=== PATIENT | female | born 1960 | race Caucasian/White ===

== ENCOUNTER 2020-01-08 23:32 | Inpatient (IN) | payer MEDICARE, OTHER, SELFPAY ==
--- NOTE | 2020-01-08 23:28 | PCM.HP.STD ---
Problem List (1) Sepsis Status: Acute Qualifiers: Sepsis type: sepsis due to unspecified organism Sepsis acute organ dysfunction status: unspecified Qualified Code(s): A41.9 - Sepsis, unspecified organism (2) Colitis Status: Acute (3) Acute kidney injury Status: Acute (4) CAD (coronary artery disease) Status: Chronic Qualifiers: Coronary Disease-Associated Artery/Lesion type: unspecified vessel or lesion type [place] vs. transplanted heart: unspecified whether [place] or transplanted heart Associated angina: angina presence unspecified Qualified Code(s): I25.10 - Atherosclerotic heart disease of [place] coronary artery without angina pectoris (5) Takotsubo cardiomyopathy Status: Chronic (6) HTN (hypertension) Status: Chronic Qualifiers: Hypertension type: essential hypertension Qualified Code(s): I10 - Essential (primary) hypertension (7) HLD (hyperlipidemia) Status: Chronic Qualifiers: Hyperlipidemia type: unspecified Qualified Code(s): E78.5 - Hyperlipidemia, unspecified (8) Diabetes mellitus, type II Status: Chronic Qualifiers: Diabetes mellitus salvage determiner insulin use: without residential use Diabetes mellitus complication status: with other specified complication Qualified Code(s): E11.69 - Type 2 diabetes mellitus with other specified complication (9) GERD (gastroesophageal reflux disease) Status: Chronic Qualifiers: Esophagitis presence: esophagitis presence not specified Qualified Code(s): K21.9 - Gastro-esophageal reflux disease without esophagitis (10) History of GI bleed Status: Chronic (11) History of small bowel obstruction Status: Chronic (12) Former tobacco use Status: Chronic History of Present Illness Date of Admission: 01/08/20 Chief Complaint: Abdominal, nausea, emesis, bloody diarrhea The patient is a 59 y/o F w/ PMHx: Non-obstructive CAD, Takotsubo cardiomyopathy, Depression and Anxiety, Diabetes mellitus type II, Hx GI Bleed, Hx SBO, HLD, HTN, Hx diverticulosis, GERD, Former tobacco use who presents to the [facility] on 01/08/20 as direction admission from outside ED with history of presenting to their facility also on 01/08/20 with history of recent constipation 2 days prior to recent symptom onset which he notes has been an issue since initiation of Trulicity with onset day prior initially loose stools noting that she had a normal solid bowel movement initially followed by brownish diarrhea however since then she has had occasional reddish-brown stools with mucus and blood-tinged in addition to onset evening prior to outside hospital ED presentation left sided, lower > upper, abdominal pain, constant, sharp, 5-7/10 in severity with onset concurrently nausea and intractable emesis with fever onset up to 102. She denies any recent new cough from baseline although does have allergies and post-nasal drip. She denies any dyspnea. Upon OSH ED evaluation she noted pain initially 5/10 in severity and upon discussion with ED physician rated her pain improved to 1/10. Addition outside ED evaluation and work-up included: VS: T 97.7, HR 105, RR 17, BP 121/55, 100% on RA CBC w/ WBC 25, Hgb 14, Plts 372 with L shift CMP w/ Na 131, Chl 92, BUN/Cr 47/3.45 (2018 baselinene Cr 1.1), glucose 231, unremarkable hepatic profile, lipase 89 LA 1.6 Bld Cx x 2 pending per ED UA 6-12 WBC, trace LE, nitrite negative, few bacteria with UCx pending Bloody mucousy stools, occult positive CT A/P without contrast colonic wall thickening with distal transverse and descending colon involvement concerning for colitis, possble sluge or gallstones in the gallbladder, unremarkable pancreas, no evidence kidney stones, normal appendix, no ascites or aneursym, normal appearing lung bases BL. Medications administered: Morphine, zofran, cipro, flagyl, 2L NS. [place] placed. Past Medical History Past Medical History (Chronic Problems): Chronic Problems CAD (coronary artery disease) (Chronic) Takotsubo cardiomyopathy (Chronic) HTN (hypertension) (Chronic) HLD (hyperlipidemia) (Chronic) Diabetes mellitus, type II (Chronic) GERD (gastroesophageal reflux disease) (Chronic) History of GI bleed (Chronic) History of small bowel obstruction (Chronic) Former tobacco use (Chronic) Augmentin (diarrhea), Benadrul (dystonia), Codeine (GI upset, itching), Compazine (lip smaking), doxycycline (diarrhea), levaquin (increased BS), morphine (upset stomach), phenergan (lip smaking), vicodin (hand and face swelling). Home Medications: Ambulatory Orders Medication Instructions Recorded Cyclobenzaprine HCl 10 mg PO PRN PRN 01/08/20 Dulaglutide [Trulicity] 0.75 mg SQ QWEEK 01/08/20 Duloxetine Hcl [Cymbalta] 30 mg PO DAILY 01/08/20 Lisinopril 20 mg PO DAILY 01/08/20 Metformin HCl ER 2,000 mg PO DAILY 01/08/20 Metoprolol Succinate 25 mg PO DAILY 01/08/20 Pantoprazole Sodium 40 mg PO DAILY 01/08/20 Sitagliptin Phosphate [Januvia] 100 mg PO DAILY 01/08/20 Terbinafine HCl 250 mg PO DAILY 01/08/20 Surgical History: - - Hx small bowel resection for recurrent SBO 2013, T+A, lumbar laminectomy, radical hysterectomy secondary to history of cervical cancer. Psychiatric History: Anxiety, Depression [employer] History: cervical cancer - History of cervical cancer status post radical hysterectomy. Lives: Spouse/ Significant Other Smoking Status: Former smoker - Patient quit cigarette tobacco usage approximately 35 years prior with prior to this less than 1 pack/day noted to be intermittent from age 10 until she quit. Tobacco Use: Non-smoker Alcohol: None Drugs: None - *Family History Maternal History Items: Cancer, Diabetes Paternal History Items: Cancer, Diabetes, Hypertension Review of Systems Constitutional: Reports: Anorexia, Chills, Fever, Malaise, Weakness, Fatigue. Denies: Weight Change HEENT: Reports: Post Nasal Drip, Sinus Congestion. Denies: Head Aches, Sinus Drainage Cardiovascular: Denies: Chest Pain, Chest Pressure, Chest Tightness, Light Headedness, Orthopnea, Palpitations, Syncope Respiratory: Reports: Cough - Chronic cough with sinuses, unchanged.. Denies: Shortness of Breath, Shortness of breath at rest, Shortness of breath upon exertion, Sputum production Gastrointestinal: Reports: Abdominal Pain, Constipation, Diarrhea, Nausea, Vomiting, - - Blood-tinged mucus with diarrhea. Genitourinary: Denies: Dysuria Musculoskeletal: Denies: Joint Pain, Joint Tenderness Skin: Denies: Rash, Wounds Neurological: Denies: Numbness, Tingling, Focal weakness Psychiatric: Reports: Anxiety, Depression. Denies: Homicidal Ideations, Suicidal Ideations Hematologic/ Lymphatic: Denies: Easy Bruising, Easy Bleeding VTE Information - Inpt Only VTE Present on Admission: No VTE Mechan Device Prophylaxis: SCD's VTE Pharm Prophylaxis ordered?: No Reason prophylaxis not ordered:: Medical Contraindication Patient Problems: Active and Suspected Problems Sepsis (Acute) Colitis (Acute) Acute kidney injury (Acute) Subjective: Seated upright in the PCU bed, no acute distress, discomfort elicited with any movements. Objective: Physical Examination: General: awake, alert, oriented x 3 and cooperative, seated upright in the PCU bed, fatigued appearance otherwise currently no acute complaints. Skin: normal color, turgor, no icterus, cyanosis. HEENT: AT/NC, EOMI, PERRLA, dry MM, no carotid bruits or JVD noted. Lungs: CTA bilaterally, moderate effort, moderate decrease BL bases, no rales, ronchi or wheezing. Heart: Regular rate and rhythm; no gallop, rub audible. Abdomen: soft, ongoing discomfort primarily the left side of the abdomen with some voluntary guarding, nondistended, mildly hyperactive bowel sounds, unable to discern HSM secondary to pain with examination. Extremities: no cyanosis, clubbing, or edema. Neurological: patient awake, alert, oriented x 3; cognitive function intact; pupils equally reactive to light and accomodation; cranial nerves II-XII grossly normal, moving all 4 extremities, no focal deficits, strength moderately to severely globally decreased secondary to acute presentation. Psychiatric: affect appears fatigued otherwise normal, no acute evidence of depressive or anxiety feelings. Assessment/Plan All Active Problems Sepsis (Acute) Colitis (Acute) Acute kidney injury (Acute) The patient is a 59 y/o F w/ PMHx: Non-obstructive CAD, Takotsubo cardiomyopathy, Depression and Anxiety, Diabetes mellitus type II, Hx GI Bleed, Hx SBO, HLD, HTN, Hx diverticulosis, GERD, Former tobacco use who presents to the [facility] on 01/08/20 as direction admission with history of nearing 48 hours of onset diarrhea, mucous-blood tinged appearance with L sided abdominal pain, fevers, nausea and emesis. 1. Acute Sepsis secondary to Acute Colitis with associated GI Bleeding: OSH ED w/ tachycardia with heart rate 105, temperature 102 at home however 97.9 at outside hospital ED presentation, CBC with WC 25 with left shift evident, lactic acid 1.6, administered 2 L normal saline prior to transfer, CT abdomen and pelvis with evidence of thickening of the distal transverse and descending colon suggestive of colitis. Will admit to [facility], maintain on IVFs, maintain NPO status with bowel rest, contain on IV PPI, maintain on regimen zosyn with renal dosing as needed given acute kidney injury concurrently, PRN antiemetics, PRN pain regimen. We will continue to trend CBC with hemoglobin given associated bleeding likely secondary to acute infection. Consider diet advancement to clears once sxs improve. 2. Acute kidney injury: Secondary to GI losses and acute presentation as noted #1. Admission BUN/Cr 47/3.45, prior baseline creatinine noted to be 0.1. Will continue to aggressively hydrate, hold nephrotoxic medications and repeat chemistry in AM. If no improvement would plan FeNa assessment. CT with normal-appearing kidneys at outside facility. 3. Nonobstructive CAD, Hx Takotsubo Cardiomyopathy: We will temporarily hold patient aspirin, continue home beta-daniel, hold nephrotoxic regimen temporarily, resume once renal function improved. 4. Hypertension: Continue home regimen including metoprolol, holding lisinopril given JAYSON, PRN hydralazine. 5. Hyperlipidemia: Not on statin, defer to outpatient. 6. Diabetes mellitus type II: Hold oral home regimen, n.p.o. status, accu checks w/ ISS every 6 hours while n.p.o. 7. Depression and Anxiety: We will continue patient home low-dose Cymbalta regimen with renal dosing as needed. 8. GERD: We will maintain on IV PPI. 9. DVT prophylaxis: SCDs, defer chemoprophylaxis given associated bloody mucus stools with colitis presentation. Inpatient E&M: 68609 Init Hosp L3
[2020-01-09] VITALS (7 sets, daily range): BP systolic 115–148; BP diastolic 63–74; PULSE 80–99; RESP 16; TEMP 36.4–37.3; O2SAT 96–97; BMI 28.6
[2020-01-09] MEDS: 0.9% Normal Saline 1,000 ML 500 ML IV (00:05)
[2020-01-09 00:09] LABS: Magnesium 1.2 mg/dL (1.6-2.6)
[2020-01-09] MEDS: HYDROmorphone 0.5 MG/0.5 ML SYRINGE IV ×5 (01:13→22:19)
[2020-01-09] MEDS: BENZOCAINE/MENTHOL 1 LOZENGE MUCOUS MEM ×2 (01:13→05:23)
[2020-01-09 01:26] LABS: Bedside Glucose 155 mg/dL (70-110)
[2020-01-09] MEDS: 0.9% Normal Saline 1,000 ML 150 ML IV ×4 (02:11→21:21)
[2020-01-09] MEDS: Ondansetron 4 MG/2 ML Vial IV ×3 (05:08→18:01)
[2020-01-09] MEDS: 0.9% Saline Lock 10 ML Syringe IV ×5 (05:08→22:19)
[2020-01-09 05:30] LABS: Bedside Glucose 119 mg/dL (70-110)
[2020-01-09 05:33] LABS: Absolute Lymphocyte Count 1.63 X10^3/uL (0.83-4.51); Absolute Neutrophil Count 11.5 X10^3/uL (2.0-7.7); Basophil# 0.02 X10^3/uL; Basophil% 0.1 % (0-1); Eosinophil# 0.02 X10^3/uL; Eosinophils% 0.1 % (0-5); Hematocrit 32.7 % (37-47); Hemoglobin 10.5 g/dL (12.0-15.0); Lymphocyte # 1.63 X10^3/ul (4.0); Lymphocyte % 11.7 % (19-41); Mean Corp Hgb Conc 32.1 g/dL (32-36); Mean Corpuscular Hgb 27.6 pg (27.0-32.0); Mean Corpuscular Volume 86.1 fL (81-99); Mean Platelet Vol. 10.1 fl (6.2-12.0); Monocyte# 0.72 X10^3/uL; Monocyte% 5.2 % (0-10); NRBC Flagged by Analyzer 0 % (0-5); Neutrophil # 11.45 X10^3/uL (2.7-7.7); Neutrophil % 82.3 % (47-70); Platelet Count 200 K/mm3 (150-450); RBC Distribution Width CV 12.4 % (11.6-14.6); RBC Distribution Width SD 38.7 fl (35.1-43.9); White Blood Count 13.9 K/mm3 (4.4-11.0)
[2020-01-09 06:01] LABS: AST(SGOT) 10 U/L (15-37); Alanine Aminotransfer ALT/SGPT 13 U/L (13-56); Albumin, Serum 2.8 g/dL (3.2-5.0); Alkaline Phosphatase 56 U/L (45-117); Anion Gap 8 (5-15); BUN 38 mg/dL (7-18); BUN/Creat Ratio 14.6 RATIO (10-20); Calcium,Total 7.3 mg/dL (8.5-10.1); Chloride 108 mmol/L (98-107); Creatinine, Serum 2.61 mg/dL (0.55-1.02); EST Glomerular Filtration Rate 20 mL/min (>60); Est Glom Filt Rate - Afr Amer 24 mL/min (>60); Estimated Creatinine Clearance 19.79 ml/min; Globulin 2.9 g/dL (2.2-4.2); Glucose 134 mg/dL (74-106); Potassium 3.7 mmol/L (3.5-5.1); Protein, Total 5.7 g/dL (6.4-8.2); Sodium Level 137 mmol/L (136-145)
[2020-01-09] MEDS: Metoprolol(XL)Succ 25 MG Tablet PO (07:59)
[2020-01-09] MEDS: DULoxetine Hcl 30 MG Capsule PO (07:59)
--- NOTE | 2020-01-09 11:23 | PN_ITS ---
Patient Problems: Active and Suspected Problems Sepsis (Acute) Colitis (Acute) Acute kidney injury (Acute) Subjective: She was seen and examined today, she still complains of left-sided abdominal pain, she denies any diarrhea and she has not had a bowel movement. - Physical Exam Vitals/I&O's: Vital Signs Temp Pulse Resp BP Pulse Ox 98.4 F 88 16 115/64 96 01/09/20 05:26 01/09/20 07:59 01/09/20 05:26 01/09/20 05:26 01/09/20 05:26 Oxygen Delivery Method Room Air Weight: 75.7 kg Body Mass Index (BMI) 28.6 Intake and Output for Last 24 Hours 01/07/20 01/08/20 01/09/20 23:59 23:59 23:59 Intake Total Balance General: Alert, Oriented x3, Cooperative HEENT: Atraumatic, PERRLA, EOMI, Normocephalic Oral: Moist Mucosa Neck: Supple, No JVD, Trachea Midline, Thyroid Normal Size and Texture Lungs: Clear to auscultation, Normal air movement, No rhonchi, No wheeze, No rales Cardiovascular: Regular rate, Regular Rhythm, Normal S1, Normal S2, No murmurs, PMI Normal Abdomen: Bowel Sounds Present, Soft, Non-Distended, Tender - There is moderate abdominal tenderness to palpation over the left upper, left mid, and left lower quadrant of the abdomen Extremities: No clubbing, No cyanosis, No edema, Capillary Refill Less than 3 Seconds Skin: No rashes, No breakdown Musculoskeletal: No Tenderness to Palpation of Joints or Extremities Neurological: Cranial nerves II-XII grossly intact, Neuro grossly intact, Sensory exam intact to light touch and pain, Coordination normal Psych/Mental Status: Normal Affect, Appropriate, Alert and oriented to time, place, person, mood and affect Laboratory Results 01/08/20 23:50: Magnesium 1.2 L 01/09/20 01:12: POC Glucose 155 H 01/09/20 05:06: WBC 13.9 H, RBC 3.80 L, Hgb 10.5 L, Hct 32.7 L, MCV 86.1, MCH 27.6, MCHC 32.1, RDW Std Deviation 38.7, RDW Coeff of Delmy 12.4, Plt Count 200, MPV 10.1, Immature Gran % (Auto) 0.600, Neut % (Auto) 82.3 H, Lymph % (Auto) 11.7 L, [place] % (Auto) 5.2, Eos % (Auto) 0.1, Baso % (Auto) 0.1, Absolute Neuts (auto) 11.5 H, Absolute Lymphs (auto) 1.63, Nucleated RBC % 0 01/09/20 05:06: Sodium 137, Potassium 3.7, Chloride 108 H, Carbon Dioxide 21.0, Anion Gap 8, BUN 38 H, Creatinine 2.61 H, Estim Creat Clear Calc 19.79, Est GFR (MDRD) Af Amer 24 L, Est GFR (MDRD) Non-Af 20 L, BUN/Creatinine Ratio 14.6, Glucose 134 H, Calcium 7.3 L, Total Bilirubin 0.50, AST 10 L, ALT 13, Alkaline Phosphatase 56, Total Protein 5.7 L, Albumin 2.8 L, Globulin 2.9, Albumin/Globulin Ratio 1.0 01/09/20 05:16: POC Glucose 119 H Current Medications Acetaminophen (Tylenol) 650 mg PO Q6H PRN PRN PRN Reason: Pain Score 1-10/Temp > 100.7 F Dextrose (D50w Syringe) 0 gm IV X1 PRN; Protocol PRN Reason: Hypoglycemia Duloxetine HCl (Cymbalta) 30 mg PO DAILY [facility] Last Admin: 01/09/20 07:59 Dose: 30 mg Documented by: Glucagon () 1 mg IM .X1 PRN PRN Reason: Hypoglycemia Hydromorphone HCl (Dilaudid Inj) 0.5 mg IV Q4H PRN PRN PRN Reason: Pain Score 6-10/10 Last Admin: 01/09/20 05:08 Dose: 0.5 mg Documented by: Sodium Chloride () 1,000 mls @ 150 mls/hr IV .[id number] [facility] Last Admin: 01/09/20 08:02 Dose: 150 mls/hr Documented by: Piperacillin Sod/Tazobactam (Sod 3.375 gm/ Sodium Chloride) 50 mls @ 12.5 mls/hr IV Q8 [facility] Last Infusion: 01/09/20 09:12 Dose: Infused Documented by: Pantoprazole Sodium 40 mg/ (Sodium Chloride) 110 mls @ 330 mls/hr IV Q12 [facility] Last Infusion: 01/09/20 00:56 Dose: Infused Documented by: Sodium Chloride () 250 mls @ 15 mls/hr IV .[id number] PRN PRN Reason: Saline Flush Sodium Chloride () 250 mls @ 15 mls/hr IV .[id number] PRN PRN Reason: Additional IVPB Infusion Insulin Human Lispro (Humalog Kwikpen (Bkc)) 0 unit SC Q6 [facility]; Protocol Last Admin: 01/09/20 05:16 Dose: Not Given Documented by: Metoprolol Succinate (Toprol Xl (Beta Kathie)) 25 mg PO DAILY [facility] Last Admin: 01/09/20 07:59 Dose: 25 mg Documented by: Ondansetron HCl (Zofran) 4 mg IV Q8H PRN PRN PRN Reason: NAUSEA/VOMITING Last Admin: 01/09/20 05:08 Dose: 4 mg Documented by: Oxycodone HCl (Oxyir) 5 mg PO Q4H PRN PRN PRN Reason: Pain Score 4-5/10 Sodium Chloride () 10 - 40 ml IV UD PRN PRN Reason: SALINE FLUSH Last Admin: 01/09/20 08:25 Dose: 10 ml Documented by: Medical Necessity - Tobacco Use Smoking Status: Former smoker Tobacco Use: Non-smoker Assessment/Plan All Active Problems Sepsis (Acute) Colitis (Acute) Acute kidney injury (Acute) #1 acute colitis-continue current antibiotic coverage, I advanced the patient's diet to clear liquids today #2 type 2 diabetes-continue to monitor blood sugars #3 essential hypertension #4 GERD #5 acute sepsis secondary to #1-patient's white blood cell count today is 13.9 #6 acute kidney injury-continue fluid administration and monitor BUN and creatinine Inpatient E&M: 44953 Subs Hosp L2
[2020-01-09 12:01] LABS: Bedside Glucose 142 mg/dL (70-110)
--- NOTE | 2020-01-09 14:31 | CM.UR ---
RN CM Assessment Contacted patient via phone d/t she is isolation. Introduced role of RN CM to patient. Patient is alert and able to participate in RN CM Assessment. Care providers, pharmacy, and demographics verified. Presentation: Abdominal, nausea, emesis, bloody diarrhea Admit Dx: Sepsis, colitis Re-Admit: no Barriers/Issues: PCP: [facility] Specialists: Retina specialist for retinal bleeds: Dr Criselda Boone opthamologist. Preferred Pharmacy: [facility] Insurance: [employer] [facility] and [employer] Benefit: yes- denies any problem w/paying for medications. LNOK: , [place]. LW/HPOA: none on file. States LW on file at [facility]. Does not have Medical POA. Living Arrangements: currently living in . They are turning a barn into a home. They are liveing on the property in until it is completed. Bathroom is completed in home for their use. ADL?s: Independent with all ADLs. No problems with stairs. Transportation: drives self. available, if she is not allowed to drive. DME: glucometer, bp cuff DME co: no preference. HHC: Had about 22 yrs ago for wound care--can't remember agency. Also had 6 year ago for TPN at home. SNF: None Goal: home DC PLAN: home, no needs anticipated. Myrna Land RN, CCM.
[2020-01-09 17:50] LABS: Bedside Glucose 181 mg/dL (70-110)
[2020-01-09] MEDS: Insulin Lispro 100 UNIT/ML INSULN.PEN SC (17:54)
[2020-01-10] VITALS (8 sets, daily range): BP systolic 117–125; BP diastolic 60–69; PULSE 73–82; RESP 16–18; TEMP 36.6–36.8; O2SAT 96–98
[2020-01-10 00:26] LABS: Bedside Glucose 121 mg/dL (70-110)
[2020-01-10] MEDS: Ondansetron 4 MG/2 ML Vial IV ×3 (03:44→20:20)
[2020-01-10] MEDS: 0.9% Normal Saline 1,000 ML 150 ML IV (03:44)
[2020-01-10] MEDS: HYDROmorphone 0.5 MG/0.5 ML SYRINGE IV ×2 (03:44→08:38)
[2020-01-10] MEDS: 0.9% Saline Lock 10 ML Syringe IV ×5 (03:44→20:20)
[2020-01-10 06:16] LABS: Bedside Glucose 123 mg/dL (70-110)
[2020-01-10] MEDS: Metoprolol(XL)Succ 25 MG Tablet PO (08:39)
[2020-01-10] MEDS: DULoxetine Hcl 30 MG Capsule PO (08:40)
[2020-01-10 09:27] LABS: Absolute Lymphocyte Count 1.58 X10^3/uL (0.83-4.51); Absolute Neutrophil Count 11.2 X10^3/uL (2.0-7.7); Basophil# 0.03 X10^3/uL; Basophil% 0.2 % (0-1); Eosinophil# 0.06 X10^3/uL; Eosinophils% 0.4 % (0-5); Hematocrit 36.2 % (37-47); Hemoglobin 11.4 g/dL (12.0-15.0); Lymphocyte # 1.58 X10^3/ul (4.0); Lymphocyte % 11.8 % (19-41); Mean Corp Hgb Conc 31.5 g/dL (32-36); Mean Corpuscular Hgb 28.1 pg (27.0-32.0); Mean Corpuscular Volume 89.2 fL (81-99); Mean Platelet Vol. 9.6 fl (6.2-12.0); Monocyte# 0.41 X10^3/uL; Monocyte% 3.1 % (0-10); NRBC Flagged by Analyzer 0 % (0-5); Neutrophil # 11.17 X10^3/uL (2.7-7.7); Neutrophil % 83.7 % (47-70); Platelet Count 248 K/mm3 (150-450); RBC Distribution Width CV 12.4 % (11.6-14.6); RBC Distribution Width SD 40.6 fl (35.1-43.9); Red Blood Count 4.06 M/mm3 (4.2-5.4); White Blood Count 13.4 K/mm3 (4.4-11.0)
[2020-01-10 09:39] LABS: Anion Gap 7 (5-15); BUN 14 mg/dL (7-18); BUN/Creat Ratio 9.4 RATIO (10-20); Calcium,Total 7.8 mg/dL (8.5-10.1); Chloride 110 mmol/L (98-107); Creatinine, Serum 1.49 mg/dL (0.55-1.02); EST Glomerular Filtration Rate 38 mL/min (>60); Est Glom Filt Rate - Afr Amer 46 mL/min (>60); Estimated Creatinine Clearance 34.67 ml/min; Glucose 166 mg/dL (74-106); Sodium Level 138 mmol/L (136-145)
[2020-01-10 11:40] LABS: Bedside Glucose 160 mg/dL (70-110)
[2020-01-10] MEDS: 0.9% Normal Saline 1,000 ML 100 ML IV ×2 (11:44→21:43)
[2020-01-10] MEDS: Morphine 2 MG/ML Syringe IV ×3 (11:45→20:21)
[2020-01-10] MEDS: Insulin Lispro 100 UNIT/ML INSULN.PEN SC ×2 (11:47→22:42)
--- NOTE | 2020-01-10 12:42 | NURSING ---
pt's personal laptop given to pt by Isadora, unit receptionist and this RN as a witness.
--- NOTE | 2020-01-10 14:49 | PN_ITS ---
Patient Problems: Active and Suspected Problems Sepsis (Acute) Colitis (Acute) Acute kidney injury (Acute) Subjective: Patient was seen and examined today, she still complains of some left-sided abdominal pain but it has improved since yesterday. Patient is complaining of feeling very sleepy and fatigued-I suspect this is secondary to narcotics administered to the patient for abdominal pain. I have decided to switch her to morphine sulfate IV and use small amounts of this medication for abdominal pain. I have decided to advance the patient's diet today-patient states that she feels uneasy about going home today, her stool enteric panel was negative and her C. difficile on her stool was negative. Patient remains afebrile - Physical Exam Vitals/I&O's: Vital Signs Temp Pulse Resp BP Pulse Ox 98.3 F 80 16 125/69 H 96 01/10/20 08:23 01/10/20 08:39 01/10/20 08:23 01/10/20 08:23 01/10/20 08:23 Oxygen Delivery Method Room Air Weight: 75.7 kg Body Mass Index (BMI) 28.6 Intake and Output for Last 24 Hours 01/08/20 01/09/20 01/10/20 23:59 23:59 23:59 Intake Total 5005.0 / 5065.0 2263.25 / 2263.25 Output Total 1400 / 1400 Balance 3605.0 / 3665.0 2263.25 / 2263.25 General: Alert, Oriented x3, Cooperative, No apparent distress, Well developed, Well nourished HEENT: Atraumatic, PERRLA, EOMI, Normocephalic Oral: Moist Mucosa Neck: Supple, No JVD, Negative Carotid Bruits, Trachea Midline, Thyroid Normal Size and Texture Lungs: Clear to auscultation, Normal air movement, No rhonchi, No wheeze, No rales Cardiovascular: Regular rate, Regular Rhythm, Normal S1, Normal S2, No murmurs, PMI Normal, No rub noted, No Gallop Abdomen: Bowel Sounds Present, Soft, Non-Distended, Tender - Mild left upper quadrant and lower quadrant abdominal tenderness is noted to palpation Extremities: No clubbing, No cyanosis, No edema, Capillary Refill Less than 3 Seconds Skin: No rashes, No breakdown Musculoskeletal: No Tenderness to Palpation of Joints or Extremities, No Muscle Wasting Neurological: Cranial nerves II-XII grossly intact, Neuro grossly intact, Muscle tone normal, Sensory exam intact to light touch and pain Psych/Mental Status: Normal Affect, Appropriate, Alert and oriented to time, place, person, mood and affect Microbiology Past 72 Hours 01/09/20 16:47 Stool Enteric Bacteriology - Final 01/09/20 16:47 Stool C. difficile DNA Amplification - Final 01/09/20 16:47 Stool Stool Lactoferrin - Final Laboratory Results 01/09/20 17:44: POC Glucose 181 H 01/10/20 00:17: POC Glucose 121 H 01/10/20 06:06: POC Glucose 123 H 01/10/20 09:12: WBC 13.4 H, RBC 4.06 L, Hgb 11.4 L, Hct 36.2 L, MCV 89.2, MCH 28.1, MCHC 31.5 L, RDW Std Deviation 40.6, RDW Coeff of Delmy 12.4, Plt Count 248, MPV 9.6, Immature Gran % (Auto) 0.800, Neut % (Auto) 83.7 H, Lymph % (Auto) 11.8 L, [place] % (Auto) 3.1, Eos % (Auto) 0.4, Baso % (Auto) 0.2, Absolute Neuts (auto) 11.2 H, Absolute Lymphs (auto) 1.58, Nucleated RBC % 0 01/10/20 09:12: Sodium 138, Potassium 4.0, Chloride 110 H, Carbon Dioxide 21.0, Anion Gap 7, BUN 14, Creatinine 1.49 H, Estim Creat Clear Calc 34.67, Est GFR (MDRD) Af Amer 46 L, Est GFR (MDRD) Non-Af 38 L, BUN/Creatinine Ratio 9.4 L, Glucose 166 H, Calcium 7.8 L 01/10/20 11:35: POC Glucose 160 H Current Medications Acetaminophen (Tylenol) 650 mg PO Q6H PRN PRN PRN Reason: Pain Score 1-10/Temp > 100.7 F Dextrose (D50w Syringe) 0 gm IV X1 PRN; Protocol PRN Reason: Hypoglycemia Duloxetine HCl (Cymbalta) 30 mg PO DAILY [facility] Last Admin: 01/10/20 08:40 Dose: 30 mg Documented by: Glucagon () 1 mg IM .X1 PRN PRN Reason: Hypoglycemia Sodium Chloride () 1,000 mls @ 100 mls/hr IV .Q10H [facility] Last Admin: 01/10/20 11:44 Dose: 100 mls/hr Documented by: Piperacillin Sod/Tazobactam (Sod 3.375 gm/ Sodium Chloride) 50 mls @ 12.5 mls/hr IV Q8 COUNTS INCLUDE 234 BEDS AT THE [facility] Last Admin: 01/10/20 13:21 Dose: 12.5 mls/hr Documented by: Pantoprazole Sodium 40 mg/ (Sodium Chloride) 110 mls @ 330 mls/hr IV Q12 [facility] Last Infusion: 01/10/20 10:36 Dose: Infused Documented by: Sodium Chloride () 250 mls @ 15 mls/hr IV .[id number] PRN PRN Reason: Saline Flush Last Infusion: 01/10/20 06:07 Dose: 0 mls/hr Documented by: Sodium Chloride () 250 mls @ 15 mls/hr IV .[id number] PRN PRN Reason: Additional IVPB Infusion Insulin Human Lispro (Humalog Kwikpen (Bkc)) 0 unit SC Q6 COUNTS INCLUDE 234 BEDS AT THE [facility]; Protocol Last Admin: 01/10/20 11:47 Dose: 1 u Documented by: Metoprolol Succinate (Toprol Xl (Beta Kathie)) 25 mg PO DAILY COUNTS INCLUDE 234 BEDS AT THE [facility] Last Admin: 01/10/20 08:39 Dose: 25 mg Documented by: Morphine Sulfate () 2 mg IV Q4H PRN PRN PRN Reason: Pain Score 1-10/10 Last Admin: 01/10/20 11:45 Dose: 2 mg Documented by: Ondansetron HCl (Zofran) 4 mg IV Q8H PRN PRN PRN Reason: NAUSEA/VOMITING Last Admin: 01/10/20 11:45 Dose: 4 mg Documented by: Oxycodone HCl (Oxyir) 5 mg PO Q4H PRN PRN PRN Reason: Pain Score 4-5/10 Sodium Chloride () 10 - 40 ml IV UD PRN PRN Reason: SALINE FLUSH Last Admin: 01/10/20 11:45 Dose: 10 ml Documented by: Medical Necessity - Tobacco Use Smoking Status: Former smoker Tobacco Use: Non-smoker Assessment/Plan All Active Problems Sepsis (Acute) Colitis (Acute) Acute kidney injury (Acute) #1 acute colitis-continue current antibiotic coverage, I advanced the patient's diet to a regular diet today #2 type 2 diabetes-continue to monitor blood sugars #3 essential hypertension #4 GERD #5 acute sepsis secondary to #1-patient's white blood cell count today is 13.4 #6 acute kidney injury-patient's creatinine was improved today at 1.49, I have decided to lower the patient's IV fluids Inpatient E&M: 14681 Subs Hosp L2
[2020-01-10 17:36] LABS: Bedside Glucose 130 mg/dL (70-110)
[2020-01-10 22:51] LABS: Bedside Glucose 165 mg/dL (70-110)
[2020-01-11] MEDS: 0.9% Saline Lock 10 ML Syringe IV ×3 (00:59→12:18)
[2020-01-11] MEDS: Morphine 2 MG/ML Syringe IV ×3 (00:59→21:42)
[2020-01-11 01:06] VITALS: BP 137/67; PULSE 75; RESP 16; TEMP 36.9; O2SAT 96
[2020-01-11 06:51] LABS: Bedside Glucose 123 mg/dL (70-110)
[2020-01-11 07:08] VITALS: BP 140/70; PULSE 73; RESP 16; TEMP 36.2; O2SAT 98
[2020-01-11] MEDS: Ondansetron 4 MG/2 ML Vial IV ×2 (07:37→21:42)
[2020-01-11] MEDS: 0.9% Normal Saline 1,000 ML 100 ML IV ×2 (07:37→18:56)
[2020-01-11 08:53] LABS: Absolute Lymphocyte Count 1.23 X10^3/uL (0.83-4.51); Absolute Neutrophil Count 7.5 X10^3/uL (2.0-7.7); Basophil# 0.03 X10^3/uL; Basophil% 0.3 % (0-1); Eosinophil# 0.06 X10^3/uL; Eosinophils% 0.6 % (0-5); Hematocrit 32.2 % (37-47); Hemoglobin 10.2 g/dL (12.0-15.0); Lymphocyte # 1.23 X10^3/ul (4.0); Lymphocyte % 13.2 % (19-41); Mean Corp Hgb Conc 31.7 g/dL (32-36); Mean Corpuscular Hgb 27.5 pg (27.0-32.0); Mean Corpuscular Volume 86.8 fL (81-99); Mean Platelet Vol. 10.1 fl (6.2-12.0); Monocyte# 0.46 X10^3/uL; Monocyte% 4.9 % (0-10); NRBC Flagged by Analyzer 0 % (0-5); Neutrophil # 7.45 X10^3/uL (2.7-7.7); Neutrophil % 80.1 % (47-70); Platelet Count 172 K/mm3 (150-450); RBC Distribution Width CV 12.3 % (11.6-14.6); RBC Distribution Width SD 39.4 fl (35.1-43.9); Red Blood Count 3.71 M/mm3 (4.2-5.4); White Blood Count 9.3 K/mm3 (4.4-11.0)
[2020-01-11 09:20] LABS: ALB/GLOB Ratio 0.8 RATIO (0.9-2.4); AST(SGOT) 11 U/L (15-37); Alanine Aminotransfer ALT/SGPT 11 U/L (13-56); Albumin, Serum 2.6 g/dL (3.2-5.0); Alkaline Phosphatase 58 U/L (45-117); Anion Gap 5 (5-15); BUN 7 mg/dL (7-18); BUN/Creat Ratio 5.8 RATIO (10-20); Calcium,Total 7.6 mg/dL (8.5-10.1); Chloride 111 mmol/L (98-107); Creatinine, Serum 1.21 mg/dL (0.55-1.02); EST Glomerular Filtration Rate 48 mL/min (>60); Est Glom Filt Rate - Afr Amer 58 mL/min (>60); Globulin 3.3 g/dL (2.2-4.2); Glucose 195 mg/dL (74-106); Potassium 3.9 mmol/L (3.5-5.1); Protein, Total 5.9 g/dL (6.4-8.2); Sodium Level 139 mmol/L (136-145)
[2020-01-11 10:07] VITALS: PULSE 73
[2020-01-11] MEDS: Metoprolol(XL)Succ 25 MG Tablet PO (10:07)
[2020-01-11] MEDS: DULoxetine Hcl 30 MG Capsule PO (10:07)
[2020-01-11] MEDS: Insulin Lispro 100 UNIT/ML INSULN.PEN SC ×3 (11:14→21:41)
[2020-01-11 11:21] LABS: Bedside Glucose 209 mg/dL (70-110)
--- NOTE | 2020-01-11 13:10 | PCM.PN.HOSP ---
Patient Problems: Active and Suspected Problems Sepsis (Acute) Colitis (Acute) Acute kidney injury (Acute) Reason for Visit: Follow-up on colitis Subjective: Patient seen and examined. She still has generalized abdominal pain. She has had 4 bloody bowel movements. Denies any fever or chills or nausea or vomiting. Objective: Physical exam: General: Alert, Oriented x3, Cooperative, No apparent distress, Well developed, Well nourished HEENT: Atraumatic, PERRLA, EOMI, Normocephalic Oral: Moist Mucosa Neck: Supple, No JVD, Negative Carotid Bruits, Trachea Midline, Thyroid Normal Size and Texture Lungs: Clear to auscultation, Normal air movement, No rhonchi, No wheeze, No rales Cardiovascular: Regular rate, Regular Rhythm, Normal S1, Normal S2, No murmurs, PMI Normal, No rub noted, No Gallop Abdomen: Bowel Sounds Present, Soft, Non-Distended, Tender -generalized, mild guarding, no rebound tenderness Extremities: No clubbing, No cyanosis, No edema, Capillary Refill Less than 3 Seconds Skin: No rashes, No breakdown Musculoskeletal: No Tenderness to Palpation of Joints or Extremities, No Muscle Wasting Neurological: Cranial nerves II-XII grossly intact, Neuro grossly intact, Muscle tone normal, Sensory exam intact to light touch and pain Psych/Mental Status: Normal Affect, Appropriate, Alert and oriented to time, place, person, mood and affect Vitals/I&O's: Vital Signs Temp Pulse Resp BP Pulse Ox 97.1 F L 73 16 140/70 H 98 01/11/20 07:08 01/11/20 10:07 01/11/20 07:08 01/11/20 07:08 01/11/20 07:08 Oxygen Delivery Method Room Air Weight: 75.7 kg Body Mass Index (BMI) 28.6 Intake and Output for Last 24 Hours 01/09/20 01/10/20 01/11/20 23:59 23:59 23:59 Intake Total 5005.0 / 5065.0 3426.58 / 3586.58 2780.92 / 2780.92 Output Total 1400 / 1400 3 / 3 Balance 3605.0 / 3665.0 3426.58 / 3586.58 2777.92 / 2777.92 Microbiology Past 72 Hours 01/09/20 16:47 Stool Enteric Bacteriology - Final 01/09/20 16:47 Stool C. difficile DNA Amplification - Final 01/09/20 16:47 Stool Stool Lactoferrin - Final Laboratory Results 01/10/20 17:26: POC Glucose 130 H 01/10/20 22:40: POC Glucose 165 H 01/11/20 06:45: POC Glucose 123 H 01/11/20 08:40: WBC 9.3, RBC 3.71 L, Hgb 10.2 L, Hct 32.2 L, MCV 86.8, MCH 27.5, MCHC 31.7 L, RDW Std Deviation 39.4, RDW Coeff of Delmy 12.3, Plt Count 172, MPV 10.1, Immature Gran % (Auto) 0.900, Neut % (Auto) 80.1 H, Lymph % (Auto) 13.2 L, Jerome % (Auto) 4.9, Eos % (Auto) 0.6, Baso % (Auto) 0.3, Absolute Neuts (auto) 7.5, Absolute Lymphs (auto) 1.23, Nucleated RBC % 0 01/11/20 08:40: Sodium 139, Potassium 3.9, Chloride 111 H, Carbon Dioxide 23.0, Anion Gap 5, BUN 7, Creatinine 1.21 H, Estim Creat Clear Calc 42.70, Est GFR (MDRD) Af Amer 58 L, Est GFR (MDRD) Non-Af 48 L, BUN/Creatinine Ratio 5.8 L, Glucose 195 H, Calcium 7.6 L, Total Bilirubin 0.30, AST 11 L, ALT 11 L, Alkaline Phosphatase 58, Total Protein 5.9 L, Albumin 2.6 L, Globulin 3.3, Albumin/Globulin Ratio 0.8 L 01/11/20 11:12: POC Glucose 209 H Current Medications Acetaminophen (Tylenol) 650 mg PO Q6H PRN PRN PRN Reason: Pain Score 1-10/Temp > 100.7 F Dextrose (D50w Syringe) 0 gm IV X1 PRN; Protocol PRN Reason: Hypoglycemia Duloxetine HCl (Cymbalta) 30 mg PO DAILY [facility] Last Admin: 01/11/20 10:07 Dose: 30 mg Documented by: Glucagon () 1 mg IM .X1 PRN PRN Reason: Hypoglycemia Sodium Chloride () 1,000 mls @ 100 mls/hr IV .Q10H [facility] Last Infusion: 01/11/20 12:00 Dose: 100 mls/hr Documented by: Piperacillin Sod/Tazobactam (Sod 3.375 gm/ Sodium Chloride) 50 mls @ 12.5 mls/hr IV Q8 [facility] Last Infusion: 01/11/20 10:53 Dose: Infused Documented by: Pantoprazole Sodium 40 mg/ (Sodium Chloride) 110 mls @ 330 mls/hr IV Q12 [facility] Last Infusion: 01/11/20 10:25 Dose: Infused Documented by: Sodium Chloride () 250 mls @ 15 mls/hr IV .[id number] PRN PRN Reason: Saline Flush Last Infusion: 01/11/20 06:42 Dose: 0 mls/hr Documented by: Sodium Chloride () 250 mls @ 15 mls/hr IV .[id number] PRN PRN Reason: Additional IVPB Infusion Insulin Human Lispro (Humalog Kwikpen (Bkc)) 0 unit SC ACHS [facility]; Protocol Last Admin: 01/11/20 11:14 Dose: 2 unit Documented by: Metoprolol Succinate (Toprol Xl (Beta Kathie)) 25 mg PO DAILY [facility] Last Admin: 01/11/20 10:07 Dose: 25 mg Documented by: Morphine Sulfate () 2 mg IV Q4H PRN PRN PRN Reason: Pain Score 1-10/10 Last Admin: 01/11/20 12:17 Dose: 2 mg Documented by: Ondansetron HCl (Zofran) 4 mg IV Q8H PRN PRN PRN Reason: NAUSEA/VOMITING Last Admin: 01/11/20 07:37 Dose: 4 mg Documented by: Oxycodone HCl (Oxyir) 5 mg PO Q4H PRN PRN PRN Reason: Pain Score 4-5/10 Sodium Chloride () 10 - 40 ml IV UD PRN PRN Reason: SALINE FLUSH Last Admin: 01/11/20 12:18 Dose: 10 ml Documented by: STROKE Vital Signs/Narrative: Vital Signs Pulse 01/11/20 10:07 73 Medical Necessity - Tobacco Use Smoking Status: Former smoker Tobacco Use: Non-smoker Assessment/Plan All Active Problems Sepsis (Acute) Colitis (Acute) Acute kidney injury (Acute) 1. Sepsis secondary to Acute colitis, unclear etiology, improving Stool for C. difficile enteric panel negative, On IV Zosyn 2. JAYSON, unclear baseline, creatinine improved, currently 1.21 from 2.61 Continue on IV fluids, repeat blood work in a.m. 3. Type II DM, on Trulicity, Metformin, Januvia at home, Blood sugars are fairly controlled, continue on insulin sliding scale with blood glucose checks 4. Hypertension, controlled, continue on metoprolol 5. DVT Ppx- early ambulation Inpatient E&M: 18042 Subs Hosp L2
[2020-01-11 14:23] VITALS: BP 158/80; PULSE 76; RESP 18; TEMP 37.2; O2SAT 98
[2020-01-11 16:30] LABS: Bedside Glucose 158 mg/dL (70-110)
[2020-01-11 21:26] VITALS: BP 178/92; PULSE 76; RESP 18; TEMP 36.9; O2SAT 100
[2020-01-11] MEDS: Pantoprazole Sodium 40 MG Tablet PO (21:43)
[2020-01-11 22:07] VITALS: BP 158/66
[2020-01-11 23:11] LABS: Bedside Glucose 153 mg/dL (70-110)
[2020-01-12 03:24] VITALS: BP 158/68; PULSE 68; RESP 18; TEMP 36.7; O2SAT 100
[2020-01-12] MEDS: 0.9% Normal Saline 1,000 ML 100 ML IV (04:33)
[2020-01-12 06:56] LABS: Bedside Glucose 123 mg/dL (70-110)
[2020-01-12 07:57] VITALS: O2SAT 98
[2020-01-12 08:01] LABS: ALB/GLOB Ratio 0.8 RATIO (0.9-2.4); AST(SGOT) 13 U/L (15-37); Alanine Aminotransfer ALT/SGPT 11 U/L (13-56); Albumin, Serum 2.5 g/dL (3.2-5.0); Alkaline Phosphatase 65 U/L (45-117); Anion Gap 6 (5-15); BUN 4 mg/dL (7-18); BUN/Creat Ratio 3.8 RATIO (10-20); Calcium,Total 7.4 mg/dL (8.5-10.1); Chloride 110 mmol/L (98-107); Creatinine, Serum 1.04 mg/dL (0.55-1.02); EST Glomerular Filtration Rate 57 mL/min (>60); Est Glom Filt Rate - Afr Amer 69 mL/min (>60); Estimated Creatinine Clearance 49.67 ml/min; Globulin 3.2 g/dL (2.2-4.2); Glucose 125 mg/dL (74-106); Potassium 3.6 mmol/L (3.5-5.1); Protein, Total 5.7 g/dL (6.4-8.2); Sodium Level 140 mmol/L (136-145)
--- NOTE | 2020-01-12 09:40 | PCM.DC ---
- Discharge Diagnoses Current Active Problems: Current Active and Chronic Problems Sepsis (Acute) Colitis (Acute) Acute kidney injury (Acute) CAD (coronary artery disease) (Chronic) Takotsubo cardiomyopathy (Chronic) HTN (hypertension) (Chronic) HLD (hyperlipidemia) (Chronic) Diabetes mellitus, type II (Chronic) GERD (gastroesophageal reflux disease) (Chronic) History of GI bleed (Chronic) History of small bowel obstruction (Chronic) Former tobacco use (Chronic) Reason(s) for Visit for Discharge Instructions: Bloody stools, colitis You will use the following diet at home:: Calorie/Carbohydrate Controlled (specify 1200, 1400, etc) - 1800 calories, Cardiac Your food should be the consistency of: Mechanical soft (ground) Your liquids should be the consistency of: Regular/Thin Discharge Activity: Return to Normal Activity Additional Instructions: Continue to keep yourself hydrated. Complete your antibiotics as prescribed. Follow-up with your primary care doctor within 1 week for repeat blood work. 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 You should continue on a soft diet and advance your diet every 2-3 days as you can tolerate. Take note of changes to your medications- Trulicity and Lisinopril has been held. Allergies/Adverse Reactions: Allergies codeine Allergy (Verified 01/08/20 23:34) Itching diphenhydramine Allergy (Verified 01/09/20 00:13) PT UNSURE OF REACTION tardive dyskinesia levofloxacin [From Levaquin] Allergy (Verified 01/08/20 23:35) Nausea/Vom/Diarrhea prochlorperazine [From Compazine] Allergy (Verified 01/09/20 00:13) PT UNSURE OF REACTION tardive dyskinesia promethazine [From Phenergan] Allergy (Verified 01/09/20 00:13) PT UNSURE OF REACTION tardive dyskinesia amoxicillin [From Augmentin] Adverse Reaction (Verified 01/08/20 23:35) Diarrhea clavulanic acid [From Augmentin] Adverse Reaction (Verified 01/08/20 23:35) Diarrhea doxycycline Adverse Reaction (Verified 01/08/20 23:35) Diarrhea Medications to take at Discharge Cyclobenzaprine HCl 10 mg PO PRN PRN 01/08/20 Duloxetine Hcl [Cymbalta] 30 mg PO DAILY 01/08/20 Metformin HCl ER 2,000 mg PO DAILY 01/08/20 Pantoprazole Sodium 40 mg PO DAILY 01/08/20 Sitagliptin Phosphate [Januvia] 100 mg PO DAILY 01/08/20 Terbinafine HCl 250 mg PO DAILY 01/08/20 Acetaminophen [Tylenol Tablet] 650 mg PO Q6H PRN PRN tab 01/12/20 Cefdinir [Omnicef [equiv]] 300 mg PO Q12H 6 Days #12 cap 01/12/20 Metoprolol(XL)Succ [Toprol Xl (Beta Kathie)] 50 mg PO DAILY 30 Days #30 tab 01/12/20 Metronidazole [Flagyl] 500 mg PO TID 6 Days #30 tab 01/12/20 Ondansetron HCl [Zofran] 4 mg PO TID PRN 4 Days #10 tab 01/12/20 Pantoprazole Sodium [Protonix] 40 mg PO BID 30 Days #60 tab 01/12/20 The following prescriptions were given: Metronidazole [Flagyl] 500 mg PO TID 6 Days #30 tab Transmission Status: Received by [id number] Cefdinir [Omnicef [equiv]] 300 mg PO Q12H 6 Days #12 cap Transmission Status: Received by [id number] Pantoprazole Sodium [Protonix] 40 mg PO BID 30 Days #60 tab Transmission Status: Received by [id number] Metoprolol(XL)Succ [Toprol Xl (Beta Kathie)] 50 mg PO DAILY 30 Days #30 tab Transmission Status: Received by [id number] Ondansetron HCl [Zofran] 4 mg PO TID PRN 4 Days #10 tab PRN Reason: Nausea/Vomiting Transmission Status: Received by [facility] Primary Care Physician: Placido Bowers MD [Primary Care Provider] - Please follow up with your Primary Care Physician in: within 1-2 weeks Test Results: Test results from this visit will be discussed in further detail at your follow-up appointment, if applicable. Proposed Discharge Date: 01/12/20
[2020-01-12 09:41] VITALS: BP 157/65; PULSE 75; RESP 18; TEMP 36.8; O2SAT 97
[2020-01-12 09:47] VITALS: PULSE 75
[2020-01-12] MEDS: Pantoprazole Sodium 40 MG Tablet PO (09:47)
[2020-01-12] MEDS: DULoxetine Hcl 30 MG Capsule PO (09:47)
[2020-01-12] MEDS: Metoprolol(XL)Succ 50 MG Tablet PO (09:47)
[2020-01-12] MEDS: 0.9% Saline Lock 10 ML Syringe IV (10:00)
[2020-01-12] MEDS: Ondansetron 4 MG/2 ML Vial IV (10:00)
--- NOTE | 2020-01-12 10:10 | DS.PCM_ITS ---
Discharge Date and Diagnosis - Problem List Patient Problems: Active and Suspected Problems Sepsis (Acute) Colitis (Acute) Acute kidney injury (Acute) Date of Admission: 01/08/20 Date of Discharge: 01/12/20 - Primary Discharge Diagnosis Active and Suspected Problems Sepsis secondary to acute colitis Acute kidney injury - Secondary Discharge Diagnosis Chronic Problems CAD (coronary artery disease) (Chronic) Takotsubo cardiomyopathy (Chronic) HTN (hypertension) (Chronic) HLD (hyperlipidemia) (Chronic) Diabetes mellitus, type II (Chronic) GERD (gastroesophageal reflux disease) (Chronic) History of GI bleed (Chronic) History of small bowel obstruction (Chronic) Former tobacco use (Chronic) Hospital Course and Treatment None Operations: None Procedures: None Summary of Care Provided: The patient is a 59 year old F with PMHx of Type 2 DM, Hypertension, CAD, history of IBS who comes in with complaints of abdominal pain, nausea and bloody diarrhea on 01/08/20. Patient states that she started Trulicity 2 days prior to this. Has crampy abdominal pain. Her last colonoscopy was 10 years ago and was normal. She was transferred from [place] ED where a CT scan of abd/pelvis showed colonic wall thickening with distal transverse and descending colon involvement concerning for colitis. Stool for C. difficile was negative. Stool for enteric panel was negative. Patient started on IV antibiotics- IV Zosyn. She also had acute kidney injury on admission with creatinine of 2.61. This improved with IV fluids to 1.04 at discharge. Patient was discharged on cefdinir and Flagyl for 6 more days making 10 days total. 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 She was encouraged to follow-up with a cottage supervisor if she continues to have more bleeding per rectum. She also was recommended to repeat renal function within a week to follow-up on acute kidney injury. She was asked to hold her Trulicity and Lisinopril. She will follow-up with her PCP within 1-2 weeks. Patient Problems: Active and Suspected Problems Sepsis (Acute) Colitis (Acute) Acute kidney injury (Acute) Subjective: On the day of discharge, patient was seen and examined. She feels improved. She has had only one small BM, with slight streaks of blood. Denies fever, chills, SOB. Objective: Physical exam: General: Alert, Oriented x3, Cooperative, No apparent distress, Well developed, Well nourished HEENT: Atraumatic, PERRLA, EOMI, Normocephalic Oral: Moist Mucosa Neck: Supple, No JVD, Negative Carotid Bruits, Trachea Midline, Thyroid Normal Size and Texture Lungs: Clear to auscultation, Normal air movement, No rhonchi, No wheeze, No rales Cardiovascular: Regular rate, Regular Rhythm, Normal S1, Normal S2, No murmurs, PMI Normal, No rub noted, No Gallop Abdomen: Bowel Sounds Present, Soft, Non-Distended, Tender -generalized, mild guarding, no rebound tenderness Extremities: No clubbing, No cyanosis, No edema, Capillary Refill Less than 3 Seconds Skin: No rashes, No breakdown Musculoskeletal: No Tenderness to Palpation of Joints or Extremities, No Muscle Wasting Neurological: Cranial nerves II-XII grossly intact, Neuro grossly intact, Muscle tone normal, Sensory exam intact to light touch and pain Psych/Mental Status: Normal Affect, Appropriate, Alert and oriented to time, place, person, mood and affect - Physical Exam Vitals/I&O's: Vital Signs Temp Pulse Resp BP Pulse Ox 98.2 F 75 18 157/65 H 97 01/12/20 09:41 01/12/20 09:47 01/12/20 09:41 01/12/20 09:41 01/12/20 09:41 Oxygen Delivery Method Room Air Weight: 75.7 kg Body Mass Index (BMI) 28.6 Intake and Output for Last 24 Hours 01/10/20 01/11/20 01/12/20 23:59 23:59 23:59 Intake Total 3426.58 / 3586.58 4640.92 / 5440.92 2350 / 2350 Output Total 3 / 3 Balance 3426.58 / 3586.58 4637.92 / 5437.92 2350 / 2350 Microbiology Past 72 Hours 01/09/20 16:47 Stool Enteric Bacteriology - Final 01/09/20 16:47 Stool C. difficile DNA Amplification - Final 01/09/20 16:47 Stool Stool Lactoferrin - Final Laboratory Results 01/11/20 11:12: POC Glucose 209 H 01/11/20 16:18: POC Glucose 158 H 01/11/20 21:40: POC Glucose 153 H 01/12/20 06:37: POC Glucose 123 H 01/12/20 07:20: Sodium 140, Potassium 3.6, Chloride 110 H, Carbon Dioxide 24.0, Anion Gap 6, BUN 4 L, Creatinine 1.04 H, Estim Creat Clear Calc 49.67, Est GFR (MDRD) Af Amer 69, Est GFR (MDRD) Non-Af 57 L, BUN/Creatinine Ratio 3.8 L, Glucose 125 H, Calcium 7.4 L, Total Bilirubin 0.40, AST 13 L, ALT 11 L, Alkaline Phosphatase 65, Total Protein 5.7 L, Albumin 2.5 L, Globulin 3.2, Albumin/Globulin Ratio 0.8 L Current Medications Acetaminophen (Tylenol) 650 mg PO Q6H PRN PRN PRN Reason: Pain Score 1-10/Temp > 100.7 F Dextrose (D50w Syringe) 0 gm IV X1 PRN; Protocol PRN Reason: Hypoglycemia Duloxetine HCl (Cymbalta) 30 mg PO DAILY [facility] Last Admin: 01/12/20 09:47 Dose: 30 mg Documented by: Glucagon () 1 mg IM .X1 PRN PRN Reason: Hypoglycemia Sodium Chloride () 1,000 mls @ 75 mls/hr IV .[id number] [facility] Last Admin: 01/12/20 04:33 Dose: 100 mls/hr Documented by: Piperacillin Sod/Tazobactam (Sod 3.375 gm/ Sodium Chloride) 50 mls @ 12.5 mls/hr IV Q8 [facility] Last Admin: 01/12/20 06:33 Dose: 12.5 mls/hr Documented by: Sodium Chloride () 250 mls @ 15 mls/hr IV .[id number] PRN PRN Reason: Saline Flush Last Infusion: 01/11/20 06:42 Dose: 0 mls/hr Documented by: Sodium Chloride () 250 mls @ 15 mls/hr IV .[id number] PRN PRN Reason: Additional IVPB Infusion Insulin Human Lispro (Humalog Kwikpen (Bkc)) 0 unit SC ACHS [facility]; Protocol Last Admin: 01/12/20 06:38 Dose: Not Given Documented by: Metoprolol Succinate (Toprol Xl (Beta Kathie)) 50 mg PO DAILY [facility] Last Admin: 01/12/20 09:47 Dose: 50 mg Documented by: Ondansetron HCl (Zofran) 4 mg IV Q8H PRN PRN PRN Reason: NAUSEA/VOMITING Last Admin: 01/12/20 10:00 Dose: 4 mg Documented by: Oxycodone HCl (Oxyir) 5 mg PO Q4H PRN PRN PRN Reason: Pain Score 4-5/10 Pantoprazole Sodium (Protonix) 40 mg PO BID [facility] Last Admin: 01/12/20 09:47 Dose: 40 mg Documented by: Sodium Chloride () 10 - 40 ml IV UD PRN PRN Reason: SALINE FLUSH Last Admin: 01/12/20 10:00 Dose: 10 ml Documented by: Discharge Diet: Low fat/ Low Cholesterol, 2000 mg Sodium Diet, Carb Control Diet Discharge Activity: Return to Normal Activity Home Medications: Medications to take at Discharge Cyclobenzaprine HCl 10 mg PO PRN PRN 01/08/20 Duloxetine Hcl [Cymbalta] 30 mg PO DAILY 01/08/20 Metformin HCl ER 2,000 mg PO DAILY 01/08/20 Pantoprazole Sodium 40 mg PO DAILY 01/08/20 Sitagliptin Phosphate [Januvia] 100 mg PO DAILY 01/08/20 Terbinafine HCl 250 mg PO DAILY 01/08/20 Acetaminophen [Tylenol Tablet] 650 mg PO Q6H PRN PRN tab 01/12/20 Cefdinir [Omnicef [equiv]] 300 mg PO Q12H 6 Days #12 cap 01/12/20 Metoprolol(XL)Succ [Toprol Xl (Beta Kathie)] 50 mg PO DAILY 30 Days #30 tab 01/12/20 Metronidazole [Flagyl] 500 mg PO TID 6 Days #30 tab 01/12/20 Ondansetron HCl [Zofran] 4 mg PO TID PRN 4 Days #10 tab 01/12/20 Pantoprazole Sodium [Protonix] 40 mg PO BID 30 Days #60 tab 01/12/20 Following Prescrptions Were Given to Patient: Metronidazole [Flagyl] 500 mg PO TID 6 Days #30 tab Transmission Status: Received by [id number] Cefdinir [Omnicef [equiv]] 300 mg PO Q12H 6 Days #12 cap Transmission Status: Received by [id number] Pantoprazole Sodium [Protonix] 40 mg PO BID 30 Days #60 tab Transmission Status: Received by [facility] Metoprolol(XL)Succ [Toprol Xl (Beta Kathie)] 50 mg PO DAILY 30 Days #30 tab Transmission Status: Received by [facility] Ondansetron HCl [Zofran] 4 mg PO TID PRN 4 Days #10 tab PRN Reason: Nausea/Vomiting Transmission Status: Received by [facility] Primary Care Physician: Placido Bowers MD [Primary Care Provider] - Please follow up with your Primary Care Physician in: within 1-2 weeks Disposition: Home Minutes spent on discharge:: 40 Patient Condition:: Stable Medical Necessity - Tobacco Use Smoking Status: Former smoker Tobacco Use: Non-smoker Meaningful Use Info Meaningful Use Diagnoses (Choose all that apply): None applicable Inpatient E&M: 52421 Disch Hosp
[2020-01-12 12:06] LABS: Bedside Glucose 139 mg/dL (70-110)
--- NOTE | 2020-01-12 13:43 | NURSING ---
Pt left before this nurse could take vital signs and give discharge paper work. Pt Iv was out and this nurse informed her to eat her lunch then when she was done eating lunch to call this nurse to go over paper work. This nurse was able to call her via her cell phone and go over her instructions with her. Pt is aware prescriptions to crop picker at the [facility] in [place]. PT is aware of her diet and Activity. Pt has no further questions.
== END 2020-01-12 13:17 | disposition home or self-care (01) | DRG 872 ==
PROVIDERS: Internal Medicine; Admitting Provider Family Medicine; PCP Family Medicine; Visit Provider Internal Medicine
DX: A41.9 Sepsis, unspecified organism (principal); N17.9 Acute kidney failure, unspecified; I51.81 Takotsubo syndrome; K52.9 Noninfective gastroenteritis and colitis, unspecified; K21.9 Gastro-esophageal reflux disease without esophagitis; Z87.891 Personal history of nicotine dependence; E78.5 Hyperlipidemia, unspecified; E11.9 Type 2 diabetes mellitus without complications; I10 Essential (primary) hypertension; I25.10 Atherosclerotic heart disease of native coronary artery without angina pectoris; F41.9 Anxiety disorder, unspecified; F32.9 Major depressive disorder, single episode, unspecified
CPT/HCPCS: 36415; 80048; 80053; 82962; 83630; 83735; 85025; 87493; 87506; 99251; J7030; J7050; A4216; G0463; J2405

== ENCOUNTER 2020-05-23 21:34 | Observation (INO) | payer MEDICARE, OTHER, SELFPAY ==
[2020-01-09 00:21] VITALS: BMI 28.6
[2020-05-23 21:34] VITALS: BP 146/72; PULSE 117; RESP 18; TEMP 36.6; O2SAT 100; BMI 27.1
--- NOTE | 2020-05-23 22:24 | EKG12_ITS ---
Test Reason : PAIN Blood Pressure : / mmHG Vent. Rate : 114 BPM Atrial Rate : 114 BPM P-R Int : 138 ms QRS Dur : 064 ms QT Int : 296 ms P-R-T Axes : 050 -10 084 degrees QTc Int : 407 ms Sinus tachycardia Nonspecific ST and T wave abnormality Abnormal ECG Confirmed by ROSY WEBSTER, MATIAS ([id number]), editor farm journal JIMMIE TURNER ([id number]) on 05/25/2020 12:58:19 PM Referred By: ROSANA/NOMAN/MAURICIO Confirmed By:MATIAS GALLEGOS MD
--- NOTE | 2020-05-23 22:25 | ED.DCSUM_ITS ---
History of Present Illness Chief Complaint: Back Detail of Chief Complaint: Left lower quadrant pain, loss of balance, falls Informant: Patient Onset: Yesterday Current Severity: Moderate Maximum Severity: Moderate Narrative: Patient presents secondary to left lower quadrant pain, loss of balance, and falls. She states yesterday she developed a painful raised area in her left lower quadrant this felt to be enlarged lymph node. This caused pain throughout her pelvis and her legs. She also felt dizzy and off-balance. She was seen at the emergency room in [place] where she had blood work as well as a CT head, CT abdomen pelvis, and CT lumbar spine. These test revealed mild left inguinal adenopathy and nonspecific minimal mesorectal edema and mildly indistinct bladder wall. Patient states she was given a dose of Rocephin last night and given a prescription for Keflex but she was not able to fill it today. She states that she fell 4 times last night at home secondary to loss of balance. She does not feel like her legs give out on her. - Past Medical History (1) CAD (coronary artery disease) Status: Chronic (2) Diabetes mellitus, type II Status: Chronic (3) GERD (gastroesophageal reflux disease) Status: Chronic (4) HLD (hyperlipidemia) Status: Chronic (5) HTN (hypertension) Status: Chronic (6) Takotsubo cardiomyopathy Status: Chronic Past Medical History - Allergies and Home Meds Allergies/Adverse Reactions: Allergies codeine Allergy (Verified 05/23/20 21:37) Itching diphenhydramine Allergy (Verified 05/23/20 21:37) PT UNSURE OF REACTION tardive dyskinesia levofloxacin [From Levaquin] Allergy (Verified 05/23/20 21:37) Nausea/Vom/Diarrhea prochlorperazine [From Compazine] Allergy (Verified 05/23/20 21:37) PT UNSURE OF REACTION tardive dyskinesia promethazine [From Phenergan] Allergy (Verified 05/23/20 21:37) PT UNSURE OF REACTION tardive dyskinesia amoxicillin [From Augmentin] Adverse Reaction (Verified 05/23/20 21:37) Diarrhea clavulanic acid [From Augmentin] Adverse Reaction (Verified 05/23/20 21:37) Diarrhea doxycycline Adverse Reaction (Verified 05/23/20 21:37) Diarrhea Primary Care Physician: Placido Bowers MD [Primary Care Provider] - Prior records reviewed: Yes Surgical History: - - Hx small bowel resection for recurrent SBO 2014, T+A, lumbar laminectomy, radical hysterectomy secondary to history of cervical cancer. Smoking Status: Former smoker - Family History Maternal Family History: Reports: Cancer, Diabetes Paternal Family History: Reports: Cancer, Diabetes, Hypertension Review of Systems General: Denies: Chills, Fever Eyes: Denies: Visual changes - bilaterally ENT: Denies: Bilateral ear pain Cardiovascular: Denies: Chest pain Respiratory: Denies: Dyspnea, Cough Gastrointestinal: Reports: Abdominal pain. Denies: Nausea, Vomiting, Diarrhea Genitourinary: Denies: Dysuria Musculoskeletal: Denies: Extremity Pain Neurological: Reports: Weakness - Loss of balance Hematologic: Denies: Easy bruising, Easy bleeding Allergy: Denies: Uticaria Physical Exam Vital Signs/Narrative: Vital Signs Temp Pulse Resp BP Pulse Ox 05/23/20 21:34 97.9 F 117 H 18 146/72 H 100 Inital Vital Signs reviewed: Yes General: Well nourished, Well developed Head: Normocephalic ENT: Moist mucous membranes Neck: Supple Cardiovascular: Regular rate, Regular rhythm Respiratory: No distress, CTA bilaterally Abdomen: Soft, Tender - Mild left lower quadrant tenderness.. Negative for: Guarding, Rebound tenderness Extremities: Nontender Skin: Normal color Neurological: Alert, Oriented x3, Normal Strength, Normal Sensation Psychological: Normal affect Diagnostic/Tx/Re-eval Laboratory Results 05/23/20 05/23/20 05/24/20 22:54 22:54 00:00 WBC 10.0 RBC 4.00 L Hgb 11.8 L Hct 36.1 L MCV 90.3 MCH 29.5 MCHC 32.7 RDW Std Deviation 39.9 RDW Coeff of Delmy 12.1 Plt Count 206 MPV 9.8 Immature Gran % (Auto) 0.800 Neut % (Auto) 85.2 H Lymph % (Auto) 7.6 L [place] % (Auto) 4.5 Eos % (Auto) 1.6 Baso % (Auto) 0.3 Absolute Neuts (auto) 8.5 H Absolute Lymphs (auto) 0.76 L Nucleated RBC % 0 Sodium 130 L Potassium 4.0 Chloride 100 Carbon Dioxide 24.0 Anion Gap 6 BUN 12 Creatinine 1.24 H Estim Creat Clear Calc 41.14 Est GFR (MDRD) Af Amer 57 L Est GFR (MDRD) Non-Af 47 L BUN/Creatinine Ratio 9.7 L Glucose 191 H Calcium 8.8 Urine Color Yellow Urine Clarity Clear Urine pH 6.0 Ur Specific [place] 1.020 Urine Protein 100 H Urine Glucose (UA) 250 H Urine Ketones 50 H Urine Occult Blood 10 H Urine Nitrite Negative Urine Bilirubin Negative Urine Urobilinogen Normal Ur Leukocyte Esterase 100 H Urine RBC 0-5 SEEN Urine WBC 5-10 SEEN Ur Squamous Epith Cells 0-5 SEEN Amorphous Sediment RARE Urine Bacteria 1+ Fine Granular Casts 0-5 SEEN Urine Mucus 0 SEEN - EKG Initial EKG Interpretation: Sinus Tachycardia - Sinus tach at 114. Nonspecific ST changes. - Medical Decision Making Patient was given IV fluids here. Nursing staff did state with a walker to the bathroom she was very unsteady on her feet and did require assistance. She is already fallen 4 times I do not feel comfortable sending her home tonight. Her sodium is low at 130. Urine also does appear to be infected. Urine culture will be sent she will be given a dose of IV Rocephin. I was able to review the CT reports from imaging last night and those were not repeated today. ED Disposition - Plan for ED Patient: Disposition: Acute Care Hospital [facility] Diagnosis: Hyponatremia, Cystitis, Unsteady gait Referrals: Placido Bowers MD [Primary Care Provider] -
[2020-05-23 22:50] VITALS: BP 145/77; PULSE 114; RESP 16; O2SAT 99
[2020-05-23] MEDS: 0.9% Normal Saline 1,000 ML 150 ML IV (22:54)
[2020-05-23 23:01] LABS: Absolute Lymphocyte Count 0.76 X10^3/uL (0.83-4.51); Absolute Neutrophil Count 8.5 X10^3/uL (2.0-7.7); Basophil# 0.03 X10^3/uL; Basophil% 0.3 % (0-1); Eosinophil# 0.16 X10^3/uL; Eosinophils% 1.6 % (0-5); Hematocrit 36.1 % (37-47); Hemoglobin 11.8 g/dL (12.0-15.0); Lymphocyte # 0.76 X10^3/ul (4.0); Lymphocyte % 7.6 % (19-41); Mean Corp Hgb Conc 32.7 g/dL (32-36); Mean Corpuscular Hgb 29.5 pg (27.0-32.0); Mean Corpuscular Volume 90.3 fL (81-99); Mean Platelet Vol. 9.8 fl (6.2-12.0); Monocyte# 0.45 X10^3/uL; Monocyte% 4.5 % (0-10); NRBC Flagged by Analyzer 0 % (0-5); Neutrophil # 8.52 X10^3/uL (2.7-7.7); Neutrophil % 85.2 % (47-70); Platelet Count 206 K/mm3 (150-450); RBC Distribution Width CV 12.1 % (11.6-14.6); RBC Distribution Width SD 39.9 fl (35.1-43.9)
[2020-05-23 23:17] LABS: Anion Gap 6 (5-15); BUN 12 mg/dL (7-18); BUN/Creat Ratio 9.7 RATIO (10-20); Calcium,Total 8.8 mg/dL (8.5-10.1); Chloride 100 mmol/L (98-107); Creatinine, Serum 1.24 mg/dL (0.55-1.02); EST Glomerular Filtration Rate 47 mL/min (>60); Est Glom Filt Rate - Afr Amer 57 mL/min (>60); Estimated Creatinine Clearance 41.14 ml/min; Glucose 191 mg/dL (74-106); Sodium Level 130 mmol/L (136-145)
[2020-05-24] VITALS (9 sets, daily range): BP systolic 118–164; BP diastolic 60–81; PULSE 84–109; RESP 16–18; TEMP 36.8–38.1; O2SAT 94–100; BMI 28.0; BMI 28.1
[2020-05-24 00:06] LABS: Mucous, Urine 0 SEEN /hpf (<or=2+)
[2020-05-24 00:08] LABS: Color, Urine Yellow (Yellow); Glucose, Dipstick 250 mg/dl (Normal); Ketone-Dipstick 50 mg/dl (Negative); Leukocyte Esterase-Dipstick 100 /ul (Negative); Nitrite-Dipstick Negative (Negative); Occult Blood-Urine 10 /ul (Negative); Protein-Dipstick 100 mg/dl (Negative); Urine Bilirubin Dipstick Negative (Negative); Urine Clarity Clear (Clear); Urine Urobilinogen Normal (Normal)
[2020-05-24 00:22] LABS: Bacteria 1+ /hpf (None Seen); Fine Granular Cast- Urine 0-5 SEEN /lpf (0-5); Red Blood Cells-Urine 0-5 SEEN /hpf (0-5); Squamous Epithelial Cells - UA 0-5 SEEN /hpf (5-10)
[2020-05-24 00:23] LABS: Amorphous Sediment RARE
[2020-05-24] MEDS: 0.9% Normal Saline 1,000 ML 999 ML IV (00:23)
[2020-05-24 00:24] LABS: White Blood Cells 5-10 SEEN /hpf (0-5)
--- NOTE | 2020-05-24 00:48 | HP.PCM_ITS ---
Problem List (1) CAD (coronary artery disease) Status: Chronic Qualifiers: Coronary Disease-Associated Artery/Lesion type: unspecified vessel or lesion type [place] vs. transplanted heart: unspecified whether [place] or transplanted heart Associated angina: angina presence unspecified Qualified Code(s): I25.10 - Atherosclerotic heart disease of [place] coronary artery without angina pectoris (2) Takotsubo cardiomyopathy Status: Chronic (3) HTN (hypertension) Status: Chronic Qualifiers: Hypertension type: essential hypertension Qualified Code(s): I10 - Essential (primary) hypertension (4) HLD (hyperlipidemia) Status: Chronic Qualifiers: Hyperlipidemia type: unspecified Qualified Code(s): E78.5 - Hyperlipidemia, unspecified (5) Diabetes mellitus, type II Status: Chronic Qualifiers: Diabetes mellitus slitter scorer insulin use: without slitter scorer use Diabetes mellitus complication status: with other specified complication Qualified Code(s): E11.69 - Type 2 diabetes mellitus with other specified complication (6) Abdominal pain, left lower quadrant Status: Acute History of Present Illness Date of Admission: 05/24/20 Chief Complaint: left lower abdominal pain, falling x 4 at home The patient is a 60 year old seen and sent home from the emergency room in [facility] yesterday presents the emergency room and [place] today with a chief complaint of left lower abdominal pain and having fallen 4 times at home. She did have a CT scan done in ER at [facility] yesterday which showed some inguinal lymphadenopathy along with some inflammation of the bladder that may be consistent with cystitis. Urinalysis here was positive for UTI despite her having no dysuria or frequency complaints. The patient does complain of some nausea and states she has not had her proton pump inhibitor and is having some GERD symptoms at this time. She has been unable to explain why she has fallen at home but denies feeling as if her legs are giving out on her. No fevers or chills and no chest pain or shortness of breath at this present time. Patient will be admitted for observation and further management. She does report not having eaten well for the past 2 days. Past Medical History Past Medical History (Chronic Problems): Chronic Problems CAD (coronary artery disease) (Chronic) Takotsubo cardiomyopathy (Chronic) HTN (hypertension) (Chronic) HLD (hyperlipidemia) (Chronic) Diabetes mellitus, type II (Chronic) GERD (gastroesophageal reflux disease) (Chronic) History of GI bleed (Chronic) History of small bowel obstruction (Chronic) Former tobacco use (Chronic) Allergies codeine Allergy (Verified 05/23/20 21:37) Itching diphenhydramine Allergy (Verified 05/23/20 21:37) PT UNSURE OF REACTION tardive dyskinesia levofloxacin [From Levaquin] Allergy (Verified 05/23/20 21:37) Nausea/Vom/Diarrhea prochlorperazine [From Compazine] Allergy (Verified 05/23/20 21:37) PT UNSURE OF REACTION tardive dyskinesia promethazine [From Phenergan] Allergy (Verified 05/23/20 21:37) PT UNSURE OF REACTION tardive dyskinesia amoxicillin [From Augmentin] Adverse Reaction (Verified 05/23/20 21:37) Diarrhea clavulanic acid [From Augmentin] Adverse Reaction (Verified 05/23/20 21:37) Diarrhea doxycycline Adverse Reaction (Verified 05/23/20 21:37) Diarrhea Home Medications: Ambulatory Orders Medication Instructions Recorded Cyclobenzaprine HCl 10 mg PO PRN PRN 01/08/20 Duloxetine Hcl [Cymbalta] 30 mg PO DAILY 01/08/20 Metformin HCl ER 2,000 mg PO DAILY 01/08/20 Pantoprazole Sodium 40 mg PO DAILY 01/08/20 Sitagliptin Phosphate [Januvia] 100 mg PO DAILY 01/08/20 Terbinafine HCl 250 mg PO DAILY 01/08/20 Acetaminophen [Tylenol Tablet] 650 mg PO Q6H PRN PRN tab 01/12/20 Surgical History: - - Hx small bowel resection for recurrent SBO 2013, T+A, lumbar laminectomy, radical hysterectomy secondary to history of cervical cancer. Psychiatric History: Anxiety, Depression [employer] History: cervical cancer - History of cervical cancer status post radical hysterectomy. Smoking Status: Former smoker - *Family History Maternal History Items: Cancer, Diabetes Paternal History Items: Cancer, Diabetes, Hypertension Review of Systems Constitutional: Denies: Chills, Fever, Weight Change HEENT: Denies: Head Aches, Sinus Congestion, Sinus Drainage Cardiovascular: Denies: Chest Pain, Palpitations Respiratory: Denies: Cough, Shortness of breath at rest, Sputum production Gastrointestinal: Reports: Abdominal Pain, Nausea. Denies: Vomiting Genitourinary: Denies: Dysuria Musculoskeletal: Denies: Joint Pain, Joint Tenderness Skin: Denies: Rash, Wounds Neurological: Denies: Numbness, Tingling, Focal weakness Psychiatric: Denies: Anxiety, Depression, Homicidal Ideations, Suicidal Ideations Hematologic/ Lymphatic: Denies: Easy Bruising, Easy Bleeding VTE Information - Inpt Only VTE Present on Admission: No VTE Mechan Device Prophylaxis: None VTE Pharm Prophylaxis ordered?: Yes Patient Problems: Active and Suspected Problems Hyponatremia (Acute) Cystitis (Acute) Unsteady gait (Acute) Abdominal pain, left lower quadrant (Acute) - Physical Exam Vitals/I&O's: Vital Signs Temp Pulse Resp BP Pulse Ox 97.9 F 108 H 16 148/75 H 96 05/23/20 21:34 05/24/20 00:04 05/24/20 00:04 05/24/20 00:04 05/24/20 00:04 Oxygen Delivery Method Room Air Weight: 158 lb Body Mass Index (BMI) 27.1 General: Alert, Oriented x3, Cooperative HEENT: Atraumatic, Normocephalic Neck: Supple, Negative Carotid Bruits Lungs: Clear to auscultation, Normal air movement Cardiovascular: Normal S1, Normal S2, No murmurs, Tachycardic Abdomen: Bowel Sounds Present, Non Tender, Tender - LLQ no guarding Extremities: No edema Skin: No rashes Musculoskeletal: No Tenderness to Palpation of Joints or Extremities Neurological: Neuro grossly intact Psych/Mental Status: Normal Affect, Appropriate Laboratory Results 05/23/20 22:54: WBC 10.0, RBC 4.00 L, Hgb 11.8 L, Hct 36.1 L, MCV 90.3, MCH 29.5, MCHC 32.7, RDW Std Deviation 39.9, RDW Coeff of Delmy 12.1, Plt Count 206, MPV 9.8, Immature Gran % (Auto) 0.800, Neut % (Auto) 85.2 H, Lymph % (Auto) 7.6 L, [place] % (Auto) 4.5, Eos % (Auto) 1.6, Baso % (Auto) 0.3, Absolute Neuts (auto) 8.5 H, Absolute Lymphs (auto) 0.76 L, Nucleated RBC % 0 05/23/20 22:54: Sodium 130 L, Potassium 4.0, Chloride 100, Carbon Dioxide 24.0, Anion Gap 6, BUN 12, Creatinine 1.24 H, Estim Creat Clear Calc 41.14, Est GFR (MDRD) Af Amer 57 L, Est GFR (MDRD) Non-Af 47 L, BUN/Creatinine Ratio 9.7 L, Glucose 191 H, Calcium 8.8 05/24/20 00:00: Urine Color Yellow, Urine Clarity Clear, Urine pH 6.0, Ur Specific [place] 1.020, Urine Protein 100 H, Urine Glucose (UA) 250 H, Urine Ketones 50 H, Urine Occult Blood 10 H, Urine Nitrite Negative, Urine Bilirubin Negative, Urine Urobilinogen Normal, Ur Leukocyte Esterase 100 H, Urine RBC 0-5 SEEN, Urine WBC 5-10 SEEN, Ur Squamous Epith Cells 0-5 SEEN, Amorphous Sediment RARE, Urine Bacteria 1+, Fine Granular Casts 0-5 SEEN, Urine Mucus 0 SEEN Current Medications Sodium Chloride () 1,000 mls @ 150 mls/hr IV .Q6H40M [facility] Last Admin: 05/23/20 22:54 Dose: 150 mls/hr Documented by: Sodium Chloride () 1,000 mls @ 999 mls/hr IV .Q1H1M ONE Stop: 05/24/20 01:08 Last Admin: 05/24/20 00:23 Dose: 999 mls/hr Documented by: Ceftriaxone Sodium (Rocephin) 1 gm in 50 mls @ 100 mls/hr IV X1 ONE Stop: 05/24/20 00:57 Assessment/Plan All Active Problems Sepsis (Acute) Colitis (Acute) Acute kidney injury (Acute) Hyponatremia (Acute) Cystitis (Acute) Unsteady gait (Acute) Abdominal pain, left lower quadrant (Acute) Chronic Problems CAD (coronary artery disease) (Chronic) Takotsubo cardiomyopathy (Chronic) HTN (hypertension) (Chronic) HLD (hyperlipidemia) (Chronic) Diabetes mellitus, type II (Chronic) GERD (gastroesophageal reflux disease) (Chronic) History of GI bleed (Chronic) History of small bowel obstruction (Chronic) Former tobacco use (Chronic) Plan 1. Left lower quadrant abdominal pain/UTI/inguinal lymphadenopathy.?Continue Rocephin 1 g IV every 24 hours, IV normal saline at 125 cc/h, CBC BMP repeated in the morning, Zofran 4 mg IV every 8 hours as needed nausea, continue PPI as she has been taking at home and will add low-dose morphine for pain. 2. Hypertension?continue current medications 3. Hyperlipidemia?continue statin 4. Diabetes?continue current medications 5. DVT prophylaxis?low molecular weight heparin OBSV E&M: 77472 Initial observation care L2
[2020-05-24] MEDS: Ceftriaxone 1 GM/50 ML BAG IV ×2 (00:50→23:25)
[2020-05-24] MEDS: 0.9% Normal Saline 1,000 ML 150 ML IV ×4 (01:39→23:31)
[2020-05-24] MEDS: Morphine 2 MG/ML Syringe IV (01:46)
[2020-05-24] MEDS: Ondansetron 4 MG/2 ML Vial IV (01:46)
[2020-05-24] MEDS: Acetaminophen 325 MG Tablet 650 MG PO ×2 (04:45→15:16)
[2020-05-24 07:22] LABS: Anion Gap 7 (5-15); BUN 11 mg/dL (7-18); BUN/Creat Ratio 12.2 RATIO (10-20); Calcium,Total 7.8 mg/dL (8.5-10.1); Chloride 104 mmol/L (98-107); EST Glomerular Filtration Rate 67 mL/min (>60); Est Glom Filt Rate - Afr Amer 82 mL/min (>60); Estimated Creatinine Clearance 56.68 ml/min; Glucose 153 mg/dL (74-106); Potassium 3.5 mmol/L (3.5-5.1); Sodium Level 132 mmol/L (136-145)
[2020-05-24 07:47] LABS: Differential Comment MANUAL DIFF; Lymphocyte 11 % (19-41); Monocyte 2 % (0-10); Neutrophil-Segmented 87 % (47-70); Platelet Estimate ADEQUATE (ADEQ); Red Cell Morphology NORM C+C NORMAL (NORM C&C)
[2020-05-24 08:33] LABS: Absolute Lymphocyte Count 0.71 X10^3/uL (0.83-4.51); Absolute Neutrophil Count 6.4 X10^3/uL (2.0-7.7); Basophil# 0.02 X10^3/uL; Basophil% 0.3 % (0-1); Hematocrit 31.7 % (37-47); Hemoglobin 10.6 g/dL (12.0-15.0); Lymphocyte # 0.71 X10^3/ul (4.0); Lymphocyte % 9.6 % (19-41); Mean Corp Hgb Conc 33.4 g/dL (32-36); Mean Corpuscular Hgb 30.5 pg (27.0-32.0); Mean Corpuscular Volume 91.1 fL (81-99); Mean Platelet Vol. 10.5 fl (6.2-12.0); Monocyte# 0.29 X10^3/uL; Monocyte% 3.9 % (0-10); NRBC Flagged by Analyzer 0 % (0-5); Neutrophil # 6.35 X10^3/uL (2.7-7.7); Neutrophil % 85.7 % (47-70); POSITIVE MORPHOLOGY YES; Platelet Count 182 K/mm3 (150-450); RBC Distribution Width CV 12.3 % (11.6-14.6); RBC Distribution Width SD 40.3 fl (35.1-43.9); Red Blood Count 3.48 M/mm3 (4.2-5.4); White Blood Count 7.4 K/mm3 (4.4-11.0)
[2020-05-24] MEDS: metFORMIN (XR) 500 MG Tablet 2000 MG PO (08:48)
[2020-05-24] MEDS: DULoxetine Hcl 30 MG Capsule PO (08:48)
[2020-05-24] MEDS: Enoxaparin 40 MG/0.4 ML Syringe SC (08:48)
[2020-05-24] MEDS: LINAGLIPTIN 5 MG TABLET PO (08:48)
[2020-05-24] MEDS: Pantoprazole Sodium 40 MG Tablet PO (08:48)
[2020-05-24 09:35] LABS: Differential Indicated SCAN CRITERIA MET
--- NOTE | 2020-05-24 13:09 | PN_ITS ---
Patient Problems: Active and Suspected Problems Hyponatremia (Acute) Cystitis (Acute) Unsteady gait (Acute) Abdominal pain, left lower quadrant (Acute) Subjective: Patient seen and examined. She was admitted with a complaint of multiple falls and left lower abdominal pain. She has been managed for UTI. Patient complains of feeling lethargic and drowsy today. Denies any nausea vomiting, fever or chills or burning with urination. Review of symptoms otherwise negative. She has remained hemodynamically stable. Labs and vitals reviewed. WBC 7.4 and hemoglobin is 10.6. Sodium is up to 132 today. Vitals/I&O's: Vital Signs Temp Pulse Resp BP Pulse Ox 98.8 F 84 18 118/61 96 05/24/20 08:38 05/24/20 08:38 05/24/20 08:38 05/24/20 08:38 05/24/20 08:38 Oxygen Delivery Method Room Air Weight: 163 lb 12.855 oz Body Mass Index (BMI) 28.0 Intake and Output for Last 24 Hours 05/22/20 05/23/20 05/24/20 23:59 23:59 23:59 Intake Total 3525 / 3525 Output Total 1200 / 1200 Balance 2325 / 2325 General: Alert, Cooperative, No apparent distress, Lethargic HEENT: Atraumatic, PERRLA, EOMI, Normocephalic Oral: Dry Mucosa Neck: Supple, No JVD, Negative Carotid Bruits Lungs: Clear to auscultation, Normal air movement, No rhonchi, No wheeze, No rales Cardiovascular: Regular rate, Regular Rhythm, Normal S1, Normal S2, No murmurs Abdomen: Bowel Sounds Present, Soft, Non Tender, Non-Distended, No Hepato- splenomegaly Extremities: No clubbing, No cyanosis, No edema, Capillary Refill Less than 3 Seconds Skin: No rashes, No breakdown Musculoskeletal: No Tenderness to Palpation of Joints or Extremities Lymphatic: No Cervical, Supraclavicular, or Inguinal Adenopathy Neurological: Cranial nerves II-XII grossly intact, Neuro grossly intact, Motor Exam 5/5 strength throughout Psych/Mental Status: Normal Affect, Appropriate, Alert and oriented to time, place, person, mood and affect Laboratory Results 05/23/20 22:54: WBC 10.0, RBC 4.00 L, Hgb 11.8 L, Hct 36.1 L, MCV 90.3, MCH 29.5, MCHC 32.7, RDW Std Deviation 39.9, RDW Coeff of Delmy 12.1, Plt Count 206, MPV 9.8, Immature Gran % (Auto) 0.800, Neut % (Auto) 85.2 H, Lymph % (Auto) 7.6 L, [place] % (Auto) 4.5, Eos % (Auto) 1.6, Baso % (Auto) 0.3, Absolute Neuts (auto) 8.5 H, Absolute Lymphs (auto) 0.76 L, Nucleated RBC % 0 05/23/20 22:54: Sodium 130 L, Potassium 4.0, Chloride 100, Carbon Dioxide 24.0, Anion Gap 6, BUN 12, Creatinine 1.24 H, Estim Creat Clear Calc 41.14, Est GFR (MDRD) Af Amer 57 L, Est GFR (MDRD) Non-Af 47 L, BUN/Creatinine Ratio 9.7 L, Glucose 191 H, Calcium 8.8 05/24/20 00:00: Urine Color Yellow, Urine Clarity Clear, Urine pH 6.0, Ur Specific [place] 1.020, Urine Protein 100 H, Urine Glucose (UA) 250 H, Urine Ketones 50 H, Urine Occult Blood 10 H, Urine Nitrite Negative, Urine Bilirubin Negative, Urine Urobilinogen Normal, Ur Leukocyte Esterase 100 H, Urine RBC 0-5 SEEN, Urine WBC 5-10 SEEN, Ur Squamous Epith Cells 0-5 SEEN, Amorphous Sediment RARE, Urine Bacteria 1+, Fine Granular Casts 0-5 SEEN, Urine Mucus 0 SEEN 05/24/20 06:41: WBC 7.4, RBC 3.48 L, Hgb 10.6 L, Hct 31.7 L, MCV 91.1, MCH 30.5, MCHC 33.4, RDW Std Deviation 40.3, RDW Coeff of Delmy 12.3, Plt Count 182, MPV 10.5, Immature Gran % (Auto) 0.500, Neut % (Auto) 85.7 H, Lymph % (Auto) 9.6 L, [place] % (Auto) 3.9, Eos % (Auto) 0.0, Baso % (Auto) 0.3, Absolute Neuts (auto) 6.4, Absolute Lymphs (auto) 0.71 L, Total Counted [employer], Neutrophils % (Manual) 87 H, Lymphocytes % (Manual) 11 L, Monocytes % (Manual) 2, Nucleated RBC % 0, Differential Comment MANUAL DIFF, Platelet Estimate ADEQUATE, RBC Morphology NORM C+C 05/24/20 06:41: Sodium 132 L, Potassium 3.5, Chloride 104, Carbon Dioxide 21.0, Anion Gap 7, BUN 11, Creatinine 0.90, Estim Creat Clear Calc 56.68, Est GFR (MDRD) Af Amer 82, Est GFR (MDRD) Non-Af 67, BUN/Creatinine Ratio 12.2, Glucose 153 H, Calcium 7.8 L Current Medications Acetaminophen (Tylenol) 650 mg PO Q6H PRN PRN PRN Reason: Pain Score 1-10/Temp > 100.7 F Last Admin: 05/24/20 04:45 Dose: 650 mg Documented by: Duloxetine HCl (Cymbalta) 30 mg PO DAILY [facility] Last Admin: 05/24/20 08:48 Dose: 30 mg Documented by: Enoxaparin Sodium (Lovenox) 40 mg SC DAILY [facility] Last Admin: 05/24/20 08:48 Dose: 40 mg Documented by: Sodium Chloride () 1,000 mls @ 150 mls/hr IV .Q6H40M [facility] Last Admin: 05/24/20 08:53 Dose: 150 mls/hr Documented by: Ceftriaxone Sodium (Rocephin) 1 gm in 50 mls @ 100 mls/hr IV Q24@2200 [facility] Sodium Chloride () 250 mls @ 15 mls/hr IV .[id number] PRN PRN Reason: Saline Flush Sodium Chloride () 250 mls @ 15 mls/hr IV .[id number] PRN PRN Reason: Additional IVPB Infusion Linagliptin (Tradjenta) 5 mg PO DAILY [facility] Last Admin: 05/24/20 08:48 Dose: 5 mg Documented by: Met[facility] ([facility]) [facility] Last Admin: 05/24/20 08:48 Dose: 2,000 mg Documented by: Morphine Sulfate () 2 mg IV Q3H PRN PRN PRN Reason: Pain Score 6-10/10 Last Admin: 05/24/20 01:46 Dose: 2 mg Documented by: Ondansetron HCl (Zofran) 4 mg IV Q8H PRN PRN PRN Reason: NAUSEA/VOMITING Last Admin: 05/24/20 01:46 Dose: 4 mg Documented by: Pantoprazole Sodium (Protonix) 40 mg PO DAILY [facility] Last Admin: 05/24/20 08:48 Dose: 40 mg Documented by: Sodium Chloride () 10 - 40 ml IV UD PRN PRN Reason: SALINE FLUSH Medical Necessity - Tobacco Use Smoking Status: Former smoker Assessment/Plan All Active Problems Sepsis (Acute) Colitis (Acute) Acute kidney injury (Acute) Hyponatremia (Acute) Cystitis (Acute) Unsteady gait (Acute) Abdominal pain, left lower quadrant (Acute) #UTI * feels letheragic today * has no leucoytosis * urine culture pending * on IV ceftriaxone; will continue * #Hyponatremia: * Likely due to dehydration. * Sodium was 130 on admission is now 132. * Continue gentle hydration with IV fluids and trend. #Type 2 diabetes mellitus: * On metformin and sitagliptin. * Insulin sliding scale. * Accu-Cheks AC at bedtime. DVT prophylaxis: Lovenox Inpatient E&M: [id number] Subs Hosp L2
[2020-05-24] MEDS: HYDROcodone Bitartrate/Apap 5/325 Tablet PO (16:17)
[2020-05-25] MEDS: MELATONIN 3 MG TABLET PO (00:51)
[2020-05-25 00:53] VITALS: BP 142/62; PULSE 96; RESP 18; TEMP 36.9; O2SAT 100
[2020-05-25 06:34] VITALS: BP 129/62; PULSE 88; RESP 18; TEMP 37.1
[2020-05-25 07:18] LABS: Absolute Lymphocyte Count 0.83 X10^3/uL (0.83-4.51); Absolute Neutrophil Count 3.9 X10^3/uL (2.0-7.7); Basophil# 0.02 X10^3/uL; Basophil% 0.4 % (0-1); Eosinophil# 0.03 X10^3/uL; Eosinophils% 0.6 % (0-5); Hematocrit 32.8 % (37-47); Hemoglobin 10.5 g/dL (12.0-15.0); Lymphocyte # 0.83 X10^3/ul (4.0); Lymphocyte % 16.4 % (19-41); Mean Corpuscular Hgb 29.4 pg (27.0-32.0); Mean Corpuscular Volume 91.9 fL (81-99); Mean Platelet Vol. 10.4 fl (6.2-12.0); Monocyte# 0.25 X10^3/uL; Monocyte% 4.9 % (0-10); NRBC Flagged by Analyzer 0 % (0-5); Neutrophil # 3.92 X10^3/uL (2.7-7.7); Neutrophil % 77.3 % (47-70); Platelet Count 199 K/mm3 (150-450); RBC Distribution Width CV 12.2 % (11.6-14.6); RBC Distribution Width SD 41.1 fl (35.1-43.9); Red Blood Count 3.57 M/mm3 (4.2-5.4); White Blood Count 5.1 K/mm3 (4.4-11.0)
[2020-05-25] MEDS: 0.9% Normal Saline 1,000 ML 150 ML IV (07:20)
[2020-05-25 07:55] VITALS: BP 121/72; PULSE 78; RESP 16; TEMP 36.9; O2SAT 99
[2020-05-25] MEDS: metFORMIN (XR) 500 MG Tablet 2000 MG PO (07:58)
[2020-05-25] MEDS: Enoxaparin 40 MG/0.4 ML Syringe SC (07:58)
[2020-05-25] MEDS: LINAGLIPTIN 5 MG TABLET PO (07:58)
[2020-05-25] MEDS: DULoxetine Hcl 30 MG Capsule PO (07:58)
[2020-05-25] MEDS: Pantoprazole Sodium 40 MG Tablet PO (07:58)
[2020-05-25 07:59] LABS: Anion Gap 4 (5-15); BUN 8 mg/dL (7-18); BUN/Creat Ratio 8.7 RATIO (10-20); Chloride 108 mmol/L (98-107); Creatinine, Serum 0.92 mg/dL (0.55-1.02); EST Glomerular Filtration Rate 66 mL/min (>60); Est Glom Filt Rate - Afr Amer 80 mL/min (>60); Estimated Creatinine Clearance 55.45 ml/min; Glucose 139 mg/dL (74-106); Potassium 3.9 mmol/L (3.5-5.1); Sodium Level 137 mmol/L (136-145)
[2020-05-25] MEDS: Acetaminophen 325 MG Tablet 650 MG PO (08:02)
--- NOTE | 2020-05-25 10:26 | CASEMGMT ---
ROGELIO PIERCE in to discuss DAUGHERTY form with patient. ROGELIO PIERCE explained DAUGHERTY form, patient voiced understanding. Patient signed DAUGHERTY form, original filed in chart. Patient provided copy of signed DAUGHERTY form. Patient had no further questions or concerns.
--- NOTE | 2020-05-25 10:35 | DCINST_ITS ---
- Discharge Diagnoses Current Active Problems: Current Active and Chronic Problems Hyponatremia (Acute) Cystitis (Acute) Unsteady gait (Acute) Abdominal pain, left lower quadrant (Acute) You will use the following diet at home:: Cardiac Your food should be the consistency of: Regular Your liquids should be the consistency of: Regular/Thin Discharge Activity: Return to Normal Activity Weight Bearing Status: Weight bearing as tolerated Call your doctor if you observe: Fever of 101 or Higher, Numbness or Tingling, Dizziness, Fainting spells, Swelling in the ankles, Chest pain Instructions: Understanding Urinary Tract Infections (UTIs) Allergies/Adverse Reactions: Allergies codeine Allergy (Verified 05/23/20 21:37) Itching diphenhydramine Allergy (Verified 05/23/20 21:37) PT UNSURE OF REACTION tardive dyskinesia levofloxacin [From Levaquin] Allergy (Verified 05/23/20 21:37) Nausea/Vom/Diarrhea prochlorperazine [From Compazine] Allergy (Verified 05/23/20 21:37) PT UNSURE OF REACTION tardive dyskinesia promethazine [From Phenergan] Allergy (Verified 05/23/20 21:37) PT UNSURE OF REACTION tardive dyskinesia amoxicillin [From Augmentin] Adverse Reaction (Verified 05/23/20 21:37) Diarrhea clavulanic acid [From Augmentin] Adverse Reaction (Verified 05/23/20 21:37) Diarrhea doxycycline Adverse Reaction (Verified 05/23/20 21:37) Diarrhea Medications to take at Discharge Cyclobenzaprine HCl 10 mg PO DAILY PRN PRN 01/08/20 Duloxetine Hcl [Cymbalta] 30 mg PO QHS 01/08/20 Metformin HCl ER 2,000 mg PO DAILY 01/08/20 Pantoprazole Sodium 40 mg PO DAILY 01/08/20 Sitagliptin Phosphate [Januvia] 100 mg PO DAILY 01/08/20 Acetaminophen [Tylenol Tablet] 650 mg PO Q6H PRN PRN tab 01/12/20 Cefdinir 300 mg PO BID #10 cap 05/25/20 The following prescriptions were given: Cefdinir 300 mg PO BID #10 cap [facility]: [facility] [place], [place] [address] Primary Care Physician: Placido Bowers MD [Primary Care Provider] - Please follow up with your Primary Care Physician in: 1-2 weeks Test Results: Test results from this visit will be discussed in further detail at your follow- up appointment, if applicable. Proposed Discharge Date: 05/25/20
--- NOTE | 2020-05-25 10:40 | DS.PCM_ITS ---
Discharge Date and Diagnosis - Problem List Patient Problems: Active and Suspected Problems Hyponatremia (Acute) Cystitis (Acute) Unsteady gait (Acute) Abdominal pain, left lower quadrant (Acute) Date of Admission: 05/24/20 Date of Discharge: 05/25/20 - Primary Discharge Diagnosis Acute Problems: Active Problems Hyponatremia (Acute) Cystitis (Acute) Unsteady gait (Acute) Abdominal pain, left lower quadrant (Acute) - Secondary Discharge Diagnosis Chronic Problems: Chronic Problems CAD (coronary artery disease) (Chronic) Takotsubo cardiomyopathy (Chronic) HTN (hypertension) (Chronic) HLD (hyperlipidemia) (Chronic) Diabetes mellitus, type II (Chronic) GERD (gastroesophageal reflux disease) (Chronic) History of GI bleed (Chronic) History of small bowel obstruction (Chronic) Former tobacco use (Chronic) Hospital Course and Treatment Operations: None Procedures: None Summary of Care Provided: The patient is a 60 year old F with a past medical history as outlined. She was admitted to the ED on 05/24/2020 with a complaint of left lower abdominal pain and frequent falls at home. She fell 4 times in the day of admission. She initially went to [facility] where she had a CT of the abdomen done which showed inguinal lymphadenopathy with some inflammation of the bladder consistent with cystitis. She was transferred to [facility] where UA done was positive for UTI. She also had some nausea. She was admitted and managed for debility due to mechanical falls and UTI. He was started on IV ceftriaxone and hydrated with IV fluids as well as given IV Zofran for nausea. Symptoms gradually resolved and patient's abdominal pain resolved. She felt much better. Urine culture grew mixed gram-positive organisms. Of note, she was also noted to be hyponatremic with sodium of 130 which was thought to be due to dehydration duration and she was hydrated with IV fluids. Sodium came up to 137 with hydration. Patient remained stable and was discharged home on 05/25/2020 with a prescription for p.o. cefdinir 300 mg twice daily for 5 days. She is to follow- up with her primary care doctor within 1 week. Patient seen and examined prior to discharge. She felt much better and had no complaints. Review of systems otherwise negative. Labs and vitals reviewed. Home medication reviewed and reconciled. O/E: Vital Signs Temp Pulse Resp BP Pulse Ox 98.4 F 78 16 121/72 H 99 05/25/20 07:55 05/25/20 07:55 05/25/20 07:55 05/25/20 07:55 05/25/20 07:55 [] General: Alert, Cooperative, No apparent distress HEENT: Atraumatic, PERRLA, EOMI, Normocephalic Oral: Dry Mucosa Neck: Supple, No JVD, Negative Carotid Bruits Lungs: Clear to auscultation, Normal air movement, No rhonchi, No wheeze, No rales Cardiovascular: Regular rate, Regular Rhythm, Normal S1, Normal S2, No murmurs Abdomen: Bowel Sounds Present, Soft, Non Tender, Non-Distended, No Hepato- splenomegaly Extremities: No clubbing, No cyanosis, No edema, Capillary Refill Less than 3 Seconds Skin: No rashes, No breakdown Musculoskeletal: No Tenderness to Palpation of Joints or Extremities Lymphatic: No Cervical, Supraclavicular, or Inguinal Adenopathy Neurological: Cranial nerves II-XII grossly intact, Neuro grossly intact, Motor Exam 5/5 strength throughout Psych/Mental Status: Normal Affect, Appropriate, Alert and oriented to time, place, person, mood and affect Plan is for discharge home today. Patient Problems: Active and Suspected Problems Hyponatremia (Acute) Cystitis (Acute) Unsteady gait (Acute) Abdominal pain, left lower quadrant (Acute) - Physical Exam Vitals/I&O's: Vital Signs Temp Pulse Resp BP Pulse Ox 98.4 F 78 16 121/72 H 99 05/25/20 07:55 05/25/20 07:55 05/25/20 07:55 05/25/20 07:55 05/25/20 07:55 Oxygen Delivery Method Room Air Weight: 163 lb 12.855 oz Body Mass Index (BMI) 28.0 Intake and Output for Last 24 Hours 05/23/20 05/24/20 05/25/20 23:59 23:59 23:59 Intake Total 5905 / 6255 1550 / 1550 Output Total 1200 / 1200 Balance 4705 / 5055 1550 / 1550 Laboratory Results 05/25/20 06:41: WBC 5.1, RBC 3.57 L, Hgb 10.5 L, Hct 32.8 L, MCV 91.9, MCH 29.4, MCHC 32.0, RDW Std Deviation 41.1, RDW Coeff of Delmy 12.2, Plt Count 199, MPV 10.4, Immature Gran % (Auto) 0.400, Neut % (Auto) 77.3 H, Lymph % (Auto) 16.4 L, Kay % (Auto) 4.9, Eos % (Auto) 0.6, Baso % (Auto) 0.4, Absolute Neuts (auto) 3.9, Absolute Lymphs (auto) 0.83, Nucleated RBC % 0 05/25/20 06:41: Sodium 137, Potassium 3.9, Chloride 108 H, Carbon Dioxide 25.0, Anion Gap 4 L, BUN 8, Creatinine 0.92, Estim Creat Clear Calc 55.45, Est GFR (MDRD) Af Amer 80, Est GFR (MDRD) Non-Af 66, BUN/Creatinine Ratio 8.7 L, Glucose 139 H, Calcium 8.0 L Current Medications Acetaminophen (Tylenol) 650 mg PO Q6H PRN PRN PRN Reason: Pain Score 1-10/Temp > 100.7 F Last Admin: 05/25/20 08:02 Dose: 650 mg Documented by: Hydrocodone Bitart/Acetaminophen ([place] 5mg-325mg) 1 tablet PO Q6H PRN PRN PRN Reason: Pain Score 4-10/10 Last Admin: 05/24/20 16:17 Dose: 1 tablet Documented by: Duloxetine HCl (Cymbalta) 30 mg PO DAILY [facility] Last Admin: 05/25/20 07:58 Dose: 30 mg Documented by: Enoxaparin Sodium (Lovenox) 40 mg SC DAILY [facility] Last Admin: 05/25/20 07:58 Dose: 40 mg Documented by: Sodium Chloride () 1,000 mls @ 150 mls/hr IV .Q6H40M [facility] Last Admin: 05/25/20 07:20 Dose: 150 mls/hr Documented by: Ceftriaxone Sodium (Rocephin) 1 gm in 50 mls @ 100 mls/hr IV Q24@2200 [facility] Last Infusion: 05/25/20 00:00 Dose: Infused Documented by: Sodium Chloride () 250 mls @ 15 mls/hr IV .[id number] PRN PRN Reason: Saline Flush Sodium Chloride () 250 mls @ 15 mls/hr IV .[id number] PRN PRN Reason: Additional IVPB Infusion Ibuprofen (Motrin) 400 mg PO Q6H PRN PRN PRN Reason: HEADACHE Linagliptin (Tradjenta) 5 mg PO DAILY [facility] Last Admin: 05/25/20 07:58 Dose: 5 mg Documented by: Melatonin (Melatonin) 3 mg PO QHS PRN PRN Reason: INSOMNIA Last Admin: 05/25/20 00:51 Dose: 3 mg Documented by: [facility] Last Admin: 05/25/20 07:58 Dose: 2,000 mg Documented by: Ondansetron HCl (Zofran) 4 mg IV Q8H PRN PRN PRN Reason: NAUSEA/VOMITING Last Admin: 05/24/20 01:46 Dose: 4 mg Documented by: Pantoprazole Sodium (Protonix) 40 mg PO DAILY [facility] Last Admin: 05/25/20 07:58 Dose: 40 mg Documented by: Sodium Chloride () 10 - 40 ml IV UD PRN PRN Reason: SALINE FLUSH Discharge Diet: Low fat/ Low Cholesterol Discharge Activity: Return to Normal Activity Weight Bearing Status: Weight bearing as tolerated Call your doctor if you observe: Fever of 101 or Higher, Numbness or Tingling, Dizziness, Fainting spells, Swelling in the ankles, Chest pain Home Medications: Medications to take at Discharge Cyclobenzaprine HCl 10 mg PO DAILY PRN PRN 01/08/20 Duloxetine Hcl [Cymbalta] 30 mg PO QHS 01/08/20 Metformin HCl ER 2,000 mg PO DAILY 01/08/20 Pantoprazole Sodium 40 mg PO DAILY 01/08/20 Sitagliptin Phosphate [Januvia] 100 mg PO DAILY 01/08/20 Acetaminophen [Tylenol Tablet] 650 mg PO Q6H PRN PRN tab 01/12/20 Cefdinir 300 mg PO BID #10 cap 05/25/20 Following Prescriptions Were Given to Patient: Cefdinir 300 mg PO BID #10 cap Transmission Status: Received by [facility] ALEJANDRO ALBARRAN Primary Care Physician: Placido Bowers MD [Primary Care Provider] - Please follow up with your Primary Care Physician in: 1-2 weeks Patient Instructions: Understanding Urinary Tract Infections (UTIs) Disposition: Home Minutes spent on discharge:: 35 Patient Condition:: Stable Medical Necessity - Tobacco Use Smoking Status: Former smoker Meaningful Use Info Meaningful Use Diagnoses (Choose all that apply): None applicable OBSV E&M: 45029 Observation care discharge
[2020-05-25 14:26] VITALS: BP 136/78; PULSE 79; RESP 18; TEMP 36.7; O2SAT 95
--- NOTE | 2020-05-25 14:28 | PHA.DC.MC ---
Pharmacy Service has performed discharge medication reconciliation and counseling for this patient. 1. CEFDINIR 300MG PO BID X 5 DAYS The patient's discharge medication list was reviewed for discrepancies and discrepancies were resolved. Home Medications Cyclobenzaprine HCl 10 mg PO DAILY PRN PRN 01/08/20 Duloxetine Hcl [Cymbalta] 30 mg PO QHS 01/08/20 Metformin HCl ER 2,000 mg PO DAILY 01/08/20 Pantoprazole Sodium 40 mg PO DAILY 01/08/20 Sitagliptin Phosphate [Januvia] 100 mg PO DAILY 01/08/20 Acetaminophen [Tylenol Tablet] 650 mg PO Q6H PRN PRN tab 01/12/20 Cefdinir 300 mg PO BID #10 cap 05/25/20 The patient was counseled on the following discharge medications and changes in medications for homegoing were reviewed. The Reason for Use, instructions for use, and potential side effects were reviewed for all new medications. The patient's questions regarding all of their medications were answered. The patient was able to verbally demonstrate an understanding of their discharge medications. Patient counseled by pharmacy techYousuf.
== END 2020-05-25 18:14 | disposition home health service (06) ==
LOC: ED 05-24 00:32 → MS3 05-24 03:31
PROVIDERS: Admitting Provider Family Medicine; Emergency Provider Emergency Medicine; PCP Family Medicine; Visit Provider Student in an Organized Health Care Education/Training Program
DX: N30.00 Acute cystitis without hematuria (principal); E87.1 Hypo-osmolality and hyponatremia; R26.81 Unsteadiness on feet; K21.9 Gastro-esophageal reflux disease without esophagitis; E78.5 Hyperlipidemia, unspecified; I10 Essential (primary) hypertension; I25.10 Atherosclerotic heart disease of native coronary artery without angina pectoris; E11.9 Type 2 diabetes mellitus without complications; R00.0 Tachycardia, unspecified; F32.9 Major depressive disorder, single episode, unspecified; F41.9 Anxiety disorder, unspecified; R29.6 Repeated falls; R59.0 Localized enlarged lymph nodes; I51.81 Takotsubo syndrome; Z87.891 Personal history of nicotine dependence; Z79.899 Other long term (current) drug therapy
CPT/HCPCS: 36415; 80048; 81001; 85025; 87086; 87088; 93005; 96361; 96365; 96366; 96372; 96375; 97162; 97166; 99218; 99285; J7030; A4216; G0378; J2405

== ENCOUNTER 2021-04-06 16:36 | Emergency (ER) | payer MEDICARE, OTHER, SELFPAY ==
[2020-05-24 01:20] VITALS: BMI 28.0
[2021-04-06 16:37] VITALS: BP 165/100; PULSE 73; RESP 15; TEMP 36.8; O2SAT 97; BMI 28.6
[2021-04-06 16:50] LABS: Bedside Glucose 62 mg/dL (70-110)
--- NOTE | 2021-04-06 16:59 | EDS_ITS ---
HPI History of Present Illness Chief Complaint: Complaint Informant: patient Onset/Context/Timing Onset: Days (5) Context: Gradual Onset Timing: Continuous Quality: Burning Location: Suprapubic Worsened by: Urination Relieved by: Nothing Narrative Narrative: Patient presents with dysuria, frequency, and foul-smelling urine that has been getting worse over the past 5 days. Patient states she called her doctor today who referred her to the urgent care. Patient states she went to the urgent care and was diagnosed with a urinary tract infection. Patient states the also noted protein in her urine so they referred her to the emergency department. Patient states she does have a history of stage II kidney disease. Patient states she has burning pain that is worse with urination. Patient denies any fevers or chills. Patient denies any nausea or vomiting. Patient denies any back pain. [facility] Medical History (Updated 04/06/21 @ 19:[address] Wilian Mitchell, DO) Diabetes Hypertension Home Medications Cyclobenzaprine HCl 10 mg PO DAILY PRN PRN 01/08/20 [History Last Taken 05/10/20] Metformin HCl ER 2,000 mg PO DAILY 01/08/20 [History Last Taken 05/22/20] sitagliptin 100 mg PO DAILY 01/08/20 [History Last Taken 05/22/20] acetaminophen 650 mg PO Q6H PRN PRN tab 01/12/20 [Rx Last Taken Unknown] cephalexin 500 mg PO Q6 #20 capsule 04/06/21 [Rx Last Taken Unknown] epinephrine 0.3 mg IM PRN PRN 04/06/21 [History Last Taken Unknown] insulin glargine [Lantus Solostar U-100 Insulin] 14 unit SUBCUT QHS 04/06/21 [History Last Taken Unknown] lisinopril 20 mg PO DAILY 04/06/21 [History Last Taken Unknown] metoprolol succinate 50 mg PO DAILY 04/06/21 [History Last Taken Unknown] tapentadol [Nucynta] 50 mg PO PRN PRN 04/06/21 [History Last Taken Unknown] Allergy/AdvReac Type Severity Reaction Status Date / Time codeine Allergy Itching Verified 04/06/21 16:40 diphenhydramine Allergy PT UNSURE Verified 04/06/21 16:40 OF REACTION levofloxacin [From Levaquin] Allergy Nausea/Vom/ Verified 04/06/21 16:40 Diarrhea prochlorperazine Allergy PT UNSURE Verified 04/06/21 16:40 [From Compazine] OF REACTION promethazine [From Phenergan] Allergy PT UNSURE Verified 04/06/21 16:40 OF REACTION amoxicillin [From Augmentin] AdvReac Diarrhea Verified 04/06/21 16:40 clavulanic acid AdvReac Diarrhea Verified 04/06/21 16:40 [From Augmentin] doxycycline AdvReac Diarrhea Verified 04/06/21 16:40 Surgical History (Updated 04/06/21 @ 17:[address] Wilian Mitchell DO) History of bowel resection History of hysterectomy for cancer Social History Smoking Status: Former smoker ROS ROS ED Constitutional Constitutional ED: Denies chills or fever(s) Eyes Eyes: Denies blurry vision or change in vision ENT ENT ED: Reports rhinorrhea; Denies sore throat Cardiovascular Cardiovascular: Denies chest pain or palpitations Respiratory/Chest Respiratory/Chest: Denies cough or dyspnea Gastrointestinal Gastrointestinal: Denies nausea or vomiting Genitourinary Genitourinary ED: Reports dysuria and urinary frequency; Denies hematuria Musculoskeletal Musculoskeletal: Denies back pain or neck pain Integumentary Denies abscess or rash Neurologic Neurologic: Denies headache(s) or weakness Allergic/Immunologic Allergic/Immunologic ED: Denies mouth swelling or urticaria EXAM Physical Exam Const Vital Signs: 04/06/21 16:37 Temperature 98.3 F Temperature Source Temporal Pulse Rate 73 Respiratory Rate 15 Blood Pressure 165/100 H Blood Pressure Mean 121 Pulse Ox 97 Oxygen Delivery Method Room Air Positive well nourished and well developed General Appearance ED: well developed HEENT Reports moist mucous membranes Neck supple and no JVD Resp normal respiratory effort and clear to auscultation bilaterally Cardio regular rate, regular rhythm and no murmurs GI normal to inspection, nondistended, normoactive bowel sounds Palpation: soft and tender suprapubic (Mild); Negative for guarding or rebound tenderness present Extremity normal to inspection General Extremety ED: Negative for edema or tenderness General Extremity: Negative for edema Neuro oriented x3, CN's II-XII intact bilaterally and no sensory deficits noted Sensorium / Orientation: alert Motor Exam: strength 5/5 throughout Psych mental status grossly normal Skin no rashes or lesions noted MDM MDM MDM Narrative Medical decision making narrative: CBC was within normal limits. Comprehensive metabolic profile showed a slightly elevated creatinine of 1.13 and a BUN of 20. These are consistent with prior results. Urinalysis shows leukocyte esterase of 500 with greater than 100 white blood cells. Protein was 30. Occult blood was 10 with 0-5 red blood cells. Nitrates were positive. Urine bilirubin was 3 and urobilinogen was 8. Urine culture was ordered. Patient was started on Keflex here. Patient was given a prescription for Keflex. Patient was instructed to drink plenty of fluids. Patient was instructed to follow-up with her primary care physician in 5 to 7 days. Patient understood and was agreeable with the plan. All questions were answered. Lab Data Attestation: I reviewed the patient's lab results. Labs: Laboratory Results - last 24 hr 04/06/21 04/06/21 04/06/21 16:45 17:10 17:10 WBC 10.9 RBC 4.43 Hgb 12.4 Hct 39.7 MCV 89.6 MCH 28.0 MCHC 31.2 L RDW Std Deviation 41.5 RDW Coeff of Delmy 12.5 Plt Count 351 MPV 10.3 Sodium 139 Potassium 4.1 Chloride 106 Carbon Dioxide 24.0 Anion Gap 9 BUN 20 H Creatinine 1.13 H Estim Creat Clear Calc 44.57 Est GFR (MDRD) Af Amer 63 Est GFR (MDRD) Non-Af 52 L BUN/Creatinine Ratio 17.7 Glucose 102 Calcium 9.6 Total Bilirubin 0.20 AST 12 L ALT 20 Alkaline Phosphatase 60 Total Protein 8.0 Albumin 4.2 Globulin 3.8 Albumin/Globulin Ratio 1.1 Urine Color Urine Clarity Urine pH Ur Specific [place] Urine Protein Urine Glucose (UA) Urine Ketones Urine Occult Blood Urine Nitrite Urine Bilirubin Urine Urobilinogen Ur Leukocyte Esterase Urine RBC Urine WBC Ur Squamous Epith Cells Urine Bacteria Urine Mucus POC Glucose 62 L 04/06/21 04/06/21 17:55 18:34 WBC RBC Hgb Hct MCV MCH MCHC RDW Std Deviation RDW Coeff of Delmy Plt Count MPV Sodium Potassium Chloride Carbon Dioxide Anion Gap BUN Creatinine Estim Creat Clear Calc Est GFR (MDRD) Af Amer Est GFR (MDRD) Non-Af BUN/Creatinine Ratio Glucose Calcium Total Bilirubin AST ALT Alkaline Phosphatase Total Protein Albumin Globulin Albumin/Globulin Ratio Urine Color Yellow Urine Clarity Sl. Cloudy Urine pH 6.0 Ur Specific [place] 1.010 Urine Protein 30 H Urine Glucose (UA) Normal Urine Ketones Negative Urine Occult Blood 10 H Urine Nitrite Positive H Urine Bilirubin 3 H Urine Urobilinogen 8 H Ur Leukocyte Esterase 500 H Urine RBC 0-5 SEEN Urine WBC >100 SEEN Ur Squamous Epith Cells 0-5 SEEN Urine Bacteria 1+ Urine Mucus 0 SEEN POC Glucose 102 Discharge Plan Triage Chief Complaint: Complaint ED Provider: Wilian Mitchell Dx/Rx/DC Orders Clinical Impression: Cystitis Instructions: ED CYSTITIS Female Adult Prescriptions: New cephalexin [cephalexin] 500 MG capsule 500 mg PO Q6 Qty: 20 RF: 0 No Action sitagliptin 100 MG tablet 100 mg PO DAILY RF: 0 Cyclobenzaprine HCl tablet 10 mg PO DAILY PRN PRN (Reason: back pain) RF: 0 Metformin HCl ER tablet 2,000 mg PO DAILY RF: 0 acetaminophen 325 MG tablet 650 mg PO Q6H PRN PRN (Reason: Pain Score 1-10/Temp > 100.7 F) RF: 0 Lantus Solostar U-100 Insulin 100 unit/mL (3 mL) insulin pen 14 unit SUBCUT QHS RF: 0 metoprolol succinate 50 mg tablet extended release 24 hr 50 mg PO DAILY RF: 0 lisinopril 20 mg tablet 20 mg PO DAILY RF: 0 epinephrine 0.3 mg/0.3 mL auto-injector 0.3 mg IM PRN PRN (Reason: Anaphylaxis) RF: 0 Nucynta 50 mg tablet 50 mg PO PRN PRN (Reason: Pain) RF: 0 Primary Care Provider: Placido Bowers Referrals: Placido Bowers MD [Primary Care Provider] - 3-5 Days Disposition Disposition: Home, Self Care
[2021-04-06 17:22] LABS: Hematocrit 39.7 % (37-47); Hemoglobin 12.4 g/dL (12.0-15.0); Mean Corp Hgb Conc 31.2 g/dL (32-36); Mean Corpuscular Volume 89.6 fL (81-99); Mean Platelet Vol. 10.3 fl (6.2-12.0); Platelet Count 351 K/mm3 (150-450); RBC Distribution Width CV 12.5 % (11.6-14.6); RBC Distribution Width SD 41.5 fl (35.1-43.9); Red Blood Count 4.43 M/mm3 (4.2-5.4); White Blood Count 10.9 K/mm3 (4.4-11.0)
[2021-04-06 17:39] LABS: ALB/GLOB Ratio 1.1 RATIO (0.9-2.4); AST(SGOT) 12 U/L (15-37); Alanine Aminotransfer ALT/SGPT 20 U/L (13-56); Albumin, Serum 4.2 g/dL (3.2-5.0); Alkaline Phosphatase 60 U/L (45-117); Anion Gap 9 (5-15); BUN 20 mg/dL (7-18); BUN/Creat Ratio 17.7 RATIO (10-20); Calcium,Total 9.6 mg/dL (8.5-10.1); Chloride 106 mmol/L (98-107); Creatinine, Serum 1.13 mg/dL (0.55-1.02); EST Glomerular Filtration Rate 52 mL/min (>60); Est Glom Filt Rate - Afr Amer 63 mL/min (>60); Estimated Creatinine Clearance 44.57 ml/min; Globulin 3.8 g/dL (2.2-4.2); Glucose 102 mg/dL (74-106); Potassium 4.1 mmol/L (3.5-5.1); Sodium Level 139 mmol/L (136-145)
[2021-04-06 18:05] LABS: Mucous, Urine 0 SEEN /hpf (<or=2+)
[2021-04-06 18:18] LABS: Color, Urine Yellow (Yellow); Glucose, Dipstick Normal (Normal); Ketone-Dipstick Negative (Negative); Leukocyte Esterase-Dipstick 500 /ul (Negative); Nitrite-Dipstick Positive (Negative); Occult Blood-Urine 10 /ul (Negative); Protein-Dipstick 30 mg/dl (Negative); Urine Clarity Sl. Cloudy (Clear); Urine Urobilinogen 8 mg/dl (Normal)
[2021-04-06 18:23] LABS: Urine Bilirubin Dipstick 3 mg/dL (Negative)
[2021-04-06 18:38] LABS: Red Blood Cells-Urine 0-5 SEEN /hpf (0-5); Squamous Epithelial Cells - UA 0-5 SEEN /hpf (5-10); White Blood Cells >100 SEEN /hpf (0-5)
[2021-04-06 18:39] LABS: Bacteria 1+ /hpf (None Seen)
[2021-04-06 18:46] LABS: Bedside Glucose 102 mg/dL (70-110)
[2021-04-06] MEDS: Cephalexin 500 MG Capsule PO (19:39)
== END 2021-04-06 19:41 | disposition home or self-care (01) ==
PROVIDERS: Emergency Provider Emergency Medicine; PCP Family Medicine
DX: N30.90 Cystitis, unspecified without hematuria (principal); I10 Essential (primary) hypertension; E11.9 Type 2 diabetes mellitus without complications; Z79.4 Long term (current) use of insulin; Z79.899 Other long term (current) drug therapy; Z87.891 Personal history of nicotine dependence
CPT/HCPCS: 80053; 81001; 82962; 85027; 87086; 87088; 87186; 99284; A4216

== ENCOUNTER 2021-05-07 19:44 | Observation (INO) | payer MEDICARE, OTHER, SELFPAY ==
[2021-05-07 19:47] VITALS: BMI 28.3
--- NOTE | 2021-05-07 19:48 | PCM.HP.STD ---
HPI - General General Date of Admission: 05/07/21 HPI Narrative SOFY COHEN, is a 61 F who presents with intermittent chest pain that started a week ago. Patient was in her usual state of health and had severe substernal chest pain that radiated to her jaws and shoulders associated with diaphoresis and shortness of breath. This lasted for a few minutes and went away. This morning, she had 2 episodes of similar severe chest pain, substernal, radiates to her jaw and both shoulders, associated with diaphoresis, worse with ambulation, relieved after several minutes, >5 mins of rest. Patient had history of Takotsubo cardiomyopathy in 2017. She follows up with a pole setter in the [facility]. Lasted 2D echo a year ago. She has an upcoming appointment. At the time of being seen today, patient complains of dull substernal 2 out of 10 chest discomfort that is not really pain. He denied any diaphoresis or dizziness or palpitations or orthopnea or PND. She is a transfer from [facility] ED. Her heart score is 5 Vitals were stable in [facility] ED. BMP showed potassium of 5.7. Hb was 11.7, WBC count was 5.9, platelet count is 260. Sodium is 133, potassium 5.8, chloride 108, BUN 23, creatinine 1.45. troponins were negative . Chest x-ray unremarkable. Admitting EKG showed sinus bradycardia, ID interval 115, QTc 380, poor R wave progression [facility] Medical History (Updated 05/07/21 @ 21:[address] Monique Allen MD) Degenerative disk disease Diabetes Former tobacco use History of cervical cancer History of GI bleed History of small bowel obstruction Hypertension Unsteady gait Home Medications Cyclobenzaprine HCl 10 mg PO DAILY PRN PRN 01/08/20 [History Last Taken 05/10/20] Metformin HCl ER 2,000 mg PO DAILY 01/08/20 [History Last Taken 05/22/20] sitagliptin 100 mg PO DAILY 01/08/20 [History Last Taken 05/22/20] epinephrine 0.3 mg IM PRN PRN 04/06/21 [History Last Taken Unknown] insulin glargine [Lantus Solostar U-100 Insulin] 14 unit SUBCUT QHS 04/06/21 [History Last Taken Unknown] lisinopril 20 mg PO DAILY 04/06/21 [History Last Taken Unknown] metoprolol succinate 50 mg PO DAILY 04/06/21 [History Last Taken Unknown] tapentadol [Nucynta] 50 mg PO Q8H PRN PRN 04/06/21 [History Last Taken Unknown] melatonin 40 mg PO QHS PRN PRN 05/07/21 [History Last Taken Unknown] Allergy/AdvReac Type Severity Reaction Status Date / Time codeine Allergy Itching Verified 04/06/21 16:40 diphenhydramine Allergy PT UNSURE Verified 04/06/21 16:40 OF REACTION levofloxacin [From Levaquin] Allergy Nausea/Vom/ Verified 04/06/21 16:40 Diarrhea prochlorperazine Allergy PT UNSURE Verified 04/06/21 16:40 [From Compazine] OF REACTION promethazine [From Phenergan] Allergy PT UNSURE Verified 04/06/21 16:40 OF REACTION acetaminophen [From Vicodin] AdvReac Nausea Verified 05/07/21 20:20 amoxicillin [From Augmentin] AdvReac Diarrhea Verified 04/06/21 16:40 clavulanic acid AdvReac Diarrhea Verified 04/06/21 16:40 [From Augmentin] doxycycline AdvReac Diarrhea Verified 04/06/21 16:40 hydrocodone [From Vicodin] AdvReac Nausea Verified 05/07/21 20:20 morphine AdvReac Nausea Verified 05/07/21 20:19 oxycodone [From Percocet] AdvReac Nausea Verified 05/07/21 20:20 Family History (Updated 05/07/21 @ 21:[address] Monique Allen MD) Father Heart disease Mother Diabetes Heart disease Hypertension Surgical History (Updated 05/07/21 @ 21:[address] Monique Allen MD) H/O: hysterectomy History of bowel resection History of hysterectomy for cancer Previous back surgery Social History (Updated 05/07/21 @ 21:[address] Monique Allen MD) household members: spouse Smoking Status: Former smoker alcohol intake: current details: very occasional alcohol use substance use type: does not use ROS ROS Narrative Constitutional: Reports: Malaise, Weakness, Fatigue. Denies: Anorexia, Chills, Fever, Night Sweats, Weight Change Eyes: Denies: Blurred vision, Cataracts, Conjunctivae Inflammation, Pain, Redness, Vision Change HEENT: Denies: Difficulty Hearing, Difficulty Swallowing, Head Aches, Hearing Changes, Sinus Congestion, Sinus Drainage Cardiovascular: Denies: Chest Pain, Orthopnea, Palpitations Respiratory: Denies: Cough, Shortness of breath at rest, Sputum production Gastrointestinal: Denies: Abdominal Pain, Nausea, Vomiting Genitourinary: Denies: Dysuria Musculoskeletal: Denies: Joint Pain, Joint stiffness, Joint swelling, Joint Tenderness Skin: Denies: Rash, Wounds Neurological: Denies: Numbness, Tingling, Focal weakness Vital Signs Vital Signs Vital Signs: Weight Body Mass Index (BMI) 28.6 Physical Exam Narrative Physical exam: General: Alert, Oriented x3, Cooperative, No apparent distress, Well developed HEENT: Atraumatic Oral: Moist Mucosa Neck: Supple Lungs: Clear to auscultation Cardiovascular: HS I+II, regular, no murmurs Abdomen: Bowel Sounds Present, Soft, Non Tender Extremities: No edema Skin: No rashes, No breakdown Neurological: Grossly intact Psych/Mental Status: Appropriate Results Lab / Micro Data Result Diagrams: 05/07/21 20:07 05/07/21 20:07 Assessment & Plan Assessment/Plan (1) CAD (coronary artery disease): QUALIFIERS: Associated angina: angina presence unspecified Coronary Disease-Associated Artery/Lesion type: unspecified vessel or lesion type [place] vs. transplanted heart: unspecified whether [place] or transplanted heart Qualified Code(s): I25.10 - Atherosclerotic heart disease of [place] coronary artery without angina pectoris (2) Takotsubo cardiomyopathy: (3) HTN (hypertension): QUALIFIERS: Hypertension type: essential hypertension Qualified Code(s): I10 - Essential (primary) hypertension (4) HLD (hyperlipidemia): QUALIFIERS: Hyperlipidemia type: unspecified Qualified Code(s): E78.5 - Hyperlipidemia, unspecified (5) Diabetes mellitus, type II: QUALIFIERS: Diabetes mellitus complication status: with other specified complication Diabetes mellitus termite helper insulin use: without halfway use Qualified Code(s): E11.69 - Type 2 diabetes mellitus with other specified complication (6) Chest pain: PLAN: 1. Chest pain, atypical, heart score of EKG and troponins x2 in [facility] ED was unremarkable We will repeat troponin x1, nuclear stress test in a.m., 2D echo, lipid profile Aspirin 81 mg p.o. daily, nitro as needed 2. Hyperkalemia, K 5.8, unclear etiology, patient is not on chronic potassium supplements Will repeat BMP 3. Rest of her chronic medical conditions remained stable?type II DM, hypertension, hyperlipidemia, GERD, chronic back pain -all remained stable I discussed and explained in details the various types of CODE STATUS-full code, DNR CCA, DNR CC. Patient chose to be full code Time spent discussing CODE STATUS 17 minutes Charges/Coding Visit Charges OBSV E&M: 25312 Initial observation care L3 Procedures Hospitalists Procedures: 73330 Advncd Care Plan 30 Min
[2021-05-07 19:59] VITALS: BP 145/59; PULSE 66; RESP 15; TEMP 36.8; O2SAT 100
[2021-05-07 20:21] VITALS: RESP 15; O2SAT 100
[2021-05-07 20:31] LABS: Anion Gap 7 (5-15); BUN 22 mg/dL (7-18); BUN/Creat Ratio 16.8 RATIO (10-20); Calcium,Total 9.1 mg/dL (8.5-10.1); Chloride 111 mmol/L (98-107); Creatinine, Serum 1.31 mg/dL (0.55-1.02); EST Glomerular Filtration Rate 44 mL/min (>60); Est Glom Filt Rate - Afr Amer 53 mL/min (>60); Estimated Creatinine Clearance 38.45 ml/min; Glucose 188 mg/dL (74-106); Potassium 5.1 mmol/L (3.5-5.1); Sodium Level 138 mmol/L (136-145); Troponin-I HS 7.9 pg/mL (3.0-53.7)
[2021-05-07] MEDS: 0.9% Saline Lock 10 ML Syringe IV (22:42)
[2021-05-07] MEDS: Insulin Lispro 100 UNIT/ML INSULN.PEN SC (22:42)
[2021-05-07 22:52] LABS: Bedside Glucose 167 mg/dL (70-110)
[2021-05-07 23:00] VITALS: PULSE 64
[2021-05-08] VITALS (8 sets, daily range): BP systolic 130–145; BP diastolic 72–78; PULSE 54–63; RESP 15–16; TEMP 36.4–36.8; O2SAT 99–100
[2021-05-08 05:35] LABS: Absolute Lymphocyte Count 1.99 X10^3/uL (0.83-4.51); Absolute Neutrophil Count 3.4 X10^3/uL (2.0-7.7); Basophil# 0.04 X10^3/uL; Basophil% 0.7 % (0-1); Eosinophil# 0.06 X10^3/uL; Hemoglobin 10.9 g/dL (12.0-15.0); Lymphocyte # 1.99 X10^3/ul (0.83-4.51); Lymphocyte % 33.6 % (19-41); Mean Corp Hgb Conc 30.3 g/dL (32-36); Mean Corpuscular Hgb 27.3 pg (27.0-32.0); Mean Corpuscular Volume 90.2 fL (81-99); Mean Platelet Vol. 10.7 fl (6.2-12.0); Monocyte# 0.36 X10^3/uL; Monocyte% 6.1 % (0-10); NRBC Flagged by Analyzer 0 % (0-5); Neutrophil # 3.44 X10^3/uL (2.7-7.7); Neutrophil % 58.1 % (47-70); Platelet Count 276 K/mm3 (150-450); RBC Distribution Width CV 13.2 % (11.6-14.6); RBC Distribution Width SD 43.4 fl (35.1-43.9); Red Blood Count 3.99 M/mm3 (4.2-5.4); White Blood Count 5.9 K/mm3 (4.4-11.0)
--- NOTE | 2021-05-08 05:39 | EKG12_ITS ---
Test Reason : AM EKG Blood Pressure : / mmHG Vent. Rate : 051 BPM Atrial Rate : 051 BPM P-R Int : 154 ms QRS Dur : 078 ms QT Int : 440 ms P-R-T Axes : 025 -06 031 degrees QTc Int : 405 ms Sinus bradycardia Otherwise normal ECG When compared with ECG of 07-MAY-2021 20:38, MANUAL COMPARISON REQUIRED, DATA IS UNCONFIRMED Confirmed by IVETT WEBSTER, SIA ([id number]), web content editor JIMMIE TURNER ([id number]) on 05/10/2021 2:01:02 PM Referred By: DR REAL Confirmed By:SURESH ROOT MD
[2021-05-08 06:00] LABS: ALB/GLOB Ratio 1.1 RATIO (0.9-2.4); AST(SGOT) 10 U/L (15-37); Alanine Aminotransfer ALT/SGPT 17 U/L (13-56); Albumin, Serum 3.3 g/dL (3.2-5.0); Alkaline Phosphatase 42 U/L (45-117); Anion Gap 6 (5-15); BUN 19 mg/dL (7-18); Calcium,Total 8.6 mg/dL (8.5-10.1); Chloride 110 mmol/L (98-107); Cholesterol 179 mg/dL (200); Creatinine, Serum 1.19 mg/dL (0.55-1.02); EST Glomerular Filtration Rate 49 mL/min (>60); Est Glom Filt Rate - Afr Amer 59 mL/min (>60); Estimated Creatinine Clearance 42.33 ml/min; Globulin 3.1 g/dL (2.2-4.2); Glucose 170 mg/dL (74-106); High Density Lipoprotein 28 mg/dL; Potassium 4.9 mmol/L (3.5-5.1); Protein, Total 6.4 g/dL (6.4-8.2); Sodium Level 137 mmol/L (136-145); Triglycerides 180 mg/dL; Very Low Density Lipoprotein 36 mg/dL (5-40)
[2021-05-08] MEDS: Aspirin E.C. 81 MG Tablet PO (06:38)
[2021-05-08] MEDS: Lisinopril 20 MG Tablet PO (06:38)
[2021-05-08 06:55] LABS: Bedside Glucose 150 mg/dL (70-110)
[2021-05-08] MEDS: LINAGLIPTIN 5 MG TABLET PO (09:05)
--- NOTE | 2021-05-08 09:39 | ECHOD_ITS ---
Reason For Study: Dyspnea/SOB Procedure This was a 2D Doppler, Color Flow transthoracic echocardiogram. Exam performed portable in patient room. Left Ventricle Normal LV size. The estimated ejection fraction is 65 %. Normal diastology for age. No regional wall motion abnormalities noted. Right Ventricle Normal RV size. Normal systolic function. Atria Normal left atrium. Normal right atrium. No doppler evidence for ASD. Mitral Valve There is no mitral valve stenosis. Trivial mitral valve insufficiency. Tricuspid Valve There is no tricuspid stenosis. Trivial tricuspid valve insufficiency. Unable to estimate RV systolic pressure due to insufficient tricuspid regurgitant envelope. Aortic Valve Trisinus/trileaflet aortic valve. There is no aortic stenosis. No aortic valve insufficiency. Pulmonic Valve There is no pulmonic valvular stenosis. No pulmonic valve insufficiency. Great Vessels Normal aortic root. Pericardium/Pleural No pericardial effusion. MMode/2D Measurements & Calculations LVIDd: 3.9 cm IVSd: 0.81 cm Ao root diam: 3.0 cm LVIDs: 2.7 cm LVPWd: 0.94 cm LA dimension: 3.7 cm RVDd: 2.8 cm FS: 31.3 % LAV(MOD-bp): 51.1 ml LA A4 area: 15.5 cm2 RA A4 area: 11.7 cm2 LAV(MOD-bp) Indexed: 28.3 ml/m2 LAV(MOD-sp2): 48.5 ml LAV(MOD-sp4): 44.4 ml Time Measurements MV dec time: 0.27 sec Doppler Measurements & Calculations MV E max lui: 86.8 cm/sec Lat Peak E' Lui: 7.6 cm/sec Med Peak E' Lui: 6.4 cm/sec MV A max lui: 102.5 cm/sec E/E' lat: 11.4 E/E' med: 13.6 MV E/A: 0.85 MV V2 max: 113.6 cm/sec MV P1/2t max lui: 96.3 cm/sec Ao V2 max: 122.9 cm/sec MV max P.2 mmHg MV P1/2t: 134.6 msec Ao max P.0 mmHg MV V2 mean: 62.7 cm/sec MV dec slope: 209.6 cm/sec2 MV mean P.8 mmHg MVA(P1/2t): 1.6 cm2 MV V2 VTI: 34.9 cm LV V1 max: 109.5 cm/sec PA V2 max: 94.4 cm/sec LV V1 max P.8 mmHg ECHO/Echo Complete Interpretation Summary The estimated ejection fraction is 65 %. Normal diastology for age. Trivial mitral valve insufficiency. Trivial tricuspid valve insufficiency. Ordering Physician: Todd Paz Referring Physician: MD Robinson Placido Performed By: Luis M So RCS
[2021-05-08] MEDS: Insulin Lispro 100 UNIT/ML INSULN.PEN SC (11:15)
--- NOTE | 2021-05-08 11:25 | PCM.DC ---
Discharge Instructions Diet Discharge Diet: No restrictions Activity Discharge Activity: Return to Normal Activity Weight Bearing Status: Weight bearing as tolerated Dressing / Incision Call your doctor if you observe: Fever of 101 or Higher, Numbness or Tingling, Shortness of breath, Dizziness, Chest pain, Increased palpitations (irregular heartbeat) and Calf discomfort Follow Up Care Please Follow Up With: Primary care provider When: Within the next two weeks. Test Results: Test results from this visit will be discussed in further detail at your follow-up appointment, if applicable. Discharge Plan Admission Admit Date/Time: 05/07/21 19:44 Primary Reason for Your Visit: Chest pain Attending Provider: Todd Paz Primary Care Provider: Placido Bowers Instructions Patient Instructions: ED Chest Pain, Noncardiac Discharge Orders/Prescriptions Prescriptions: Continued sitagliptin 100 MG tablet 100 mg PO DAILY RF: 0 Cyclobenzaprine HCl tablet 10 mg PO DAILY PRN PRN (Reason: back pain) RF: 0 Metformin HCl ER tablet 2,000 mg PO DAILY RF: 0 Lantus Solostar U-100 Insulin 100 unit/mL (3 mL) insulin pen 14 unit SUBCUT QHS RF: 0 metoprolol succinate 50 mg tablet extended release 24 hr 50 mg PO DAILY RF: 0 lisinopril 20 mg tablet 20 mg PO DAILY RF: 0 epinephrine 0.3 mg/0.3 mL auto-injector 0.3 mg IM PRN PRN (Reason: Anaphylaxis) RF: 0 Nucynta 50 mg tablet 50 mg PO Q8H PRN PRN (Reason: Pain) RF: 0 melatonin 10 mg Capsule 40 mg PO QHS PRN PRN (Reason: Sleep) RF: 0 Referrals / Follow Up: Placido Bowers MD [Primary Care Provider] - Within 2 Weeks Randy Rangel MD [STAFF PHYSICIAN] - Within 2 Weeks Disposition Disposition (needs filled in before D/C Order can be placed): Home, Self Care
[2021-05-08 11:51] LABS: Bedside Glucose 219 mg/dL (70-110)
--- NOTE | 2021-05-08 12:45 | STRESSREP ---
Stress Test Report Date: 05/08/2021 Procedure: Exercise tolerance test/imaging study Indications: Chest pain Consent: Per the patient Procedure: The patient exercised on a Jamal protocol for 4 minutes achieving a peak heart rate of 126 bpm (79% predicted maximal heart rate) with a peak blood pressure 162/82 mmHg and 297 peak MET capacity of 5.8 METs. The baseline ECG demonstrated normal sinus rhythm. The peak exercise ECG demonstrated no significant ischemic ST-T changes. EKG during recovery revealed no significant ST-T changes [There were no cardiac dysrhythmias pretest, during exercise, or recovery]. The functional capacity was considered mildly decreased for age. Patient had mild chest discomfort with exercise. The examination was discontinued secondary to dyspnea and mild chest discomfort. Impression: 1. Sensitivity of the test is somewhat decreased as patient reached only 79% of maximal age-predicted heart rate 2. Stress test is negative for exercise-induced EKG changes of ischemia 3. The test test is borderline positive for exercise-induced chest discomfort. 4. Functional capacity is mildly decreased for age 5. Nuclear images pending Myocardial perfusion imaging study: Technique: The patient was injected with 11.3 mCi of technetium 99m Cardiolite and subsequently rest SPECT Cardiolite nuclear imaging was obtained in the horizontal long, vertical long, and short axis views. The patient exercised on a Jamal protocol. Please see above for details. The patient was injected with 32.8 mCi of technetium 99m Cardiolite and subsequently stress SPECT Cardiolite nuclear imaging was obtained in the horizontal long, vertical long, and short axis views. A gated Cardiolite study at peak stress was obtained. Interpretation: Rest and stress SPECT Cardiolite nuclear imaging status post realignment, normalization, and attenuation correction, demonstrates no evidence of significant ischemia or infarction on the rest and stress images. The gated Cardiolite study demonstrates no significant regional wall motion abnormalities. The reported LVEF is greater than 70%. Impression: 1. There is no evidence of significant ischemia or infarction. 2. The gated Cardiolite study reports an LVEF of greater than 70%. This note was generated with Voxel (Internap) software. It may contain incorrect words, spelling, and punctuation that were not noted in checking the note before signing.
--- NOTE | 2021-05-08 14:03 | PHA.DC.MR ---
Pharmacy Service has performed discharge medication reconciliation for this patient. The patient's discharge medication list was reviewed for discrepancies and discrepancies were resolved. Home Medications Cyclobenzaprine HCl 10 mg PO DAILY PRN PRN 01/08/20 Metformin HCl ER 2,000 mg PO DAILY 01/08/20 sitagliptin 100 mg PO DAILY 01/08/20 Lantus Solostar U-100 Insulin 14 unit SUBCUT QHS 04/06/21 Nucynta 50 mg PO Q8H PRN PRN 04/06/21 epinephrine 0.3 mg IM PRN PRN 04/06/21 lisinopril 20 mg PO DAILY 04/06/21 metoprolol succinate 50 mg PO DAILY 04/06/21 melatonin 40 mg PO QHS PRN PRN 05/07/21
--- NOTE | 2021-05-08 14:05 | DS.PCM_ITS ---
Documented by User: Mahendra TANG 05/08/21 14:09 Providers Date of Admission: 05/07/21 Primary Care Physician: Dr. Placido Bowers MD Reason For Visit: CHEST PAIN Diagnosis Discharge Diagnosis (1) CAD (coronary artery disease): Status: Chronic Code(s): I25.10 - Atherosclerotic heart disease of [place] coronary artery without angina pectoris Qualifiers: Associated angina: angina presence unspecified Coronary Disease- Associated Artery/Lesion type: unspecified vessel or lesion type [place] vs. transplanted heart: unspecified whether [place] or transplanted heart Qualified Code(s): I25.10 - Atherosclerotic heart disease of [place] coronary artery without angina pectoris (2) Takotsubo cardiomyopathy: Status: Chronic Code(s): I51.81 - Takotsubo syndrome (3) HTN (hypertension): Status: Chronic Code(s): I10 - Essential (primary) hypertension Qualifiers: Hypertension type: essential hypertension Qualified Code(s): I10 - Essential (primary) hypertension (4) HLD (hyperlipidemia): Status: Chronic Code(s): E78.5 - Hyperlipidemia, unspecified Qualifiers: Hyperlipidemia type: unspecified Qualified Code(s): E78.5 - Hyperlipidemia, unspecified (5) Diabetes mellitus, type II: Status: Chronic Code(s): E11.9 - Type 2 diabetes mellitus without complications Qualifiers: Diabetes mellitus complication status: with other specified complication Diabetes mellitus continuous churn buttermaker insulin use: without detention use Qualified Code(s): E11.69 - Type 2 diabetes mellitus with other specified complication (6) Chest pain: Status: Acute Code(s): R07.9 - Chest pain, unspecified Medications at Discharge Home Medications Cyclobenzaprine HCl 10 mg PO DAILY PRN PRN 01/08/20 Metformin HCl ER 2,000 mg PO DAILY 01/08/20 sitagliptin 100 mg PO DAILY 01/08/20 Lantus Solostar U-100 Insulin 14 unit SUBCUT QHS 04/06/21 Nucynta 50 mg PO Q8H PRN PRN 04/06/21 epinephrine 0.3 mg IM PRN PRN 04/06/21 lisinopril 20 mg PO DAILY 04/06/21 metoprolol succinate 50 mg PO DAILY 04/06/21 melatonin 40 mg PO QHS PRN PRN 05/07/21 Hospital Course Procedures Nuclear stress test and Transthoracic echo Summary of Care Provided Minutes Spent on Discharge: 35 Hospital Course: Disposition: Patient to be discharged home, no home health care needs or additional therapies identified. 1) chest pain/ACS rule out Initial high-sensitivity troponin not elevated. Stress test was negative. Echocardiogram demonstrated an estimated EF of 65%. Plan; establish care with [facility] on discharge. Patient seen by Mahendra Newton PA-C, under the supervision of Dr. Paz. Physical Exam Narrative Patient is a 61-year-old female comfortably resting in bed, alert and oriented x3. Patient reports resolution of her chest pain from admission and denies development of any new symptoms. Denies chest pain, shortness of breath, palpitations, hemoptysis, sputum production, fever, chills, N/V/D. Const alert, oriented x3 and no apparent distress HEENT normocephalic, head/scalp atraumatic, hearing grossly normal bilaterally and moist oral mucous membranes Eyes EOMs intact bilaterally and conjunctivae normal Neck no lymphadenopathy, supple and no JVD Resp normal respiratory effort, no retractions, no use of accessory muscles and clear to auscultation bilaterally Cardio regular rate, regular rhythm, no murmurs and no JVD GI normal to inspection, nondistended, normoactive bowel sounds, soft to palpation and non-tender Extremity normal to inspection, full ROM and no clubbing, cyanosis or edema Skin no rashes or lesions noted, no wounds and skin turgor normal Neuro CN's II-XII intact bilaterally Psych affect normal Weight / BMI Weight Weight: 166 lb 0.129 oz Body Mass Index (BMI) 28.3 ABG / Lab / Microbiology Data Result Diagrams: 05/08/21 04:54 05/08/21 04:54 Laboratory: Laboratory Results - last 24 hr 05/07/21 20:07: Sodium 138, Potassium 5.1, Chloride 111 H, Carbon Dioxide 20.0 L , Anion Gap 7, BUN 22 H, Creatinine 1.31 H, Estim Creat Clear Calc 38.45, Est GFR (MDRD) Af Amer 53 L, Est GFR (MDRD) Non-Af 44 L, BUN/Creatinine Ratio 16.8, Glucose 188 H, Calcium 9.1, Troponin I High Sens 7.9 05/07/21 22:34: POC Glucose 167 H 05/08/21 04:54: WBC 5.9, RBC 3.99 L, Hgb 10.9 L, Hct 36.0 L, MCV 90.2, MCH 27.3, MCHC 30.3 L, RDW Std Deviation 43.4, RDW Coeff of Delmy 13.2, Plt Count 276, MPV 10.7, Immature Gran % (Auto) 0.500, Neut % (Auto) 58.1, Lymph % (Auto) 33.6, Yell % (Auto) 6.1, Eos % (Auto) 1.0, Baso % (Auto) 0.7, Absolute Neuts (auto) 3.4, Absolute Lymphs (auto) 1.99, Nucleated RBC % 0 05/08/21 04:54: Sodium 137, Potassium 4.9, Chloride 110 H, Carbon Dioxide 21.0, Anion Gap 6, BUN 19 H, Creatinine 1.19 H, Estim Creat Clear Calc 42.33, Est GFR (MDRD) Af Amer 59 L, Est GFR (MDRD) Non-Af 49 L, BUN/Creatinine Ratio 16.0, Glucose 170 H, Calcium 8.6, Total Bilirubin 0.30, AST 10 L, ALT 17, Alkaline Phosphatase 42 L, Total Protein 6.4, Albumin 3.3, Globulin 3.1, Albumin/Globulin Ratio 1.1, Triglycerides 180, Cholesterol 179, LDL Cholesterol 115, VLDL Cholesterol 36, HDL Cholesterol 28 L 05/08/21 06:37: POC Glucose 150 H 05/08/21 11:15: POC Glucose 219 H Radiography Diagnostic Testing: Radiology Impression Echocardiogram 05/08/21 09:39 Interpretation Summary The estimated ejection fraction is 65 %. Normal diastology for age. Trivial mitral valve insufficiency. Trivial tricuspid valve insufficiency. ___ Ordering Physician: Todd Paz Referring Physician: MD Placido Bowers Performed By: Brodwolf, Luis M, RCS D/C Instructions Discharge Diet: No restrictions Weight Bearing Status: Weight bearing as tolerated Call your doctor if you observe: Fever of 101 or Higher, Numbness or Tingling, Shortness of breath, Dizziness, Chest pain, Increased palpitations (irregular heartbeat) and Calf discomfort Please Follow Up With: Primary care provider When: Within the next two weeks. Meaningful Use Info Meaningful Use Diagnoses (Choose all that apply): None applicable Discharge Plan Admission Admit Date/Time: 05/07/21 19:44 Primary Reason for Your Visit: Chest pain Attending Provider: Todd Paz Primary Care Provider: Placido Bowers Instructions Patient Instructions: ED Chest Pain, Noncardiac Discharge Orders/Prescriptions Prescriptions: Continued sitagliptin 100 MG tablet 100 mg PO DAILY RF: 0 Cyclobenzaprine HCl tablet 10 mg PO DAILY PRN PRN (Reason: back pain) RF: 0 Metformin HCl ER tablet 2,000 mg PO DAILY RF: 0 Lantus Solostar U-100 Insulin 100 unit/mL (3 mL) insulin pen 14 unit SUBCUT QHS RF: 0 metoprolol succinate 50 mg tablet extended release 24 hr 50 mg PO DAILY RF: 0 lisinopril 20 mg tablet 20 mg PO DAILY RF: 0 epinephrine 0.3 mg/0.3 mL auto-injector 0.3 mg IM PRN PRN (Reason: Anaphylaxis) RF: 0 Nucynta 50 mg tablet 50 mg PO Q8H PRN PRN (Reason: Pain) RF: 0 melatonin 10 mg Capsule 40 mg PO QHS PRN PRN (Reason: Sleep) RF: 0 Referrals / Follow Up: Randy Rangel MD [STAFF PHYSICIAN] - Within 2 Weeks Placido Bowers MD [Primary Care Provider] - Within 2 Weeks Disposition Disposition (needs filled in before D/C Order can be placed): Home, Self Care Documented by User: Dr. Todd Paz MD 05/08/21 15:28 Providers Date of Admission: 05/07/21 Date of Discharge: 05/08/21 Reason For Visit: CHEST PAIN Medications at Discharge Home Medications Cyclobenzaprine HCl 10 mg PO DAILY PRN PRN 01/08/20 Metformin HCl ER 2,000 mg PO DAILY 01/08/20 sitagliptin 100 mg PO DAILY 01/08/20 Lantus Solostar U-100 Insulin 14 unit SUBCUT QHS 04/06/21 Nucynta 50 mg PO Q8H PRN PRN 04/06/21 epinephrine 0.3 mg IM PRN PRN 04/06/21 lisinopril 20 mg PO DAILY 04/06/21 metoprolol succinate 50 mg PO DAILY 04/06/21 melatonin 40 mg PO QHS PRN PRN 05/07/21 Hospital Course Summary of Care Provided Hospital Course: This patient was seen in conjunction with KITTY Wu. I have independently interviewed and examined the patient and reviewed pertinent history, examination findings, laboratory and plan of management. I have reviewed the note and agree with the documented findings with the few additional points. In brief, patient is with history of Takotsubo cardiomyopathy in 2017, used to follow Dr. 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 She came to ED for chest pain radiation to the left shoulder and arm. Serial troponin enzymes negative. EKG shows sinus bradycardia, QTC 380 ms, poor R wave progression. Patient had treadmill nuclear stress test which was negative for stress-induced ischemia; although sensitivity is decreased because patient reached only 79% of maximal age-predicted heart rate. Discussed with the bottoming machine operator Dr. Moreno and advised follow-up with primary bottoming machine operator an outpatient Lexiscan stress test or dobutamine echo to further elucidate stress test. 2D echo was done shows EF 65% with normal diastole. Patient agreed to follow with [facility] and follow-up with Dr. Rangel. Fasting profile shows LDL 115, HDL 28. Patient glucose is elevated average about 180. Advised to follow with PCP to optimize diabetes. Discharge medication reconciliation done. Discharge follow-up instructions completed. Discharge process discussed with the patient and all questions were answered to patient's satisfaction. Total time spent, exact 35 minutes on discharge meds reconciliation, ex amination, coordination of care with nurses and ancillary staff, review of imaging and blood test and discussion with the patient on follow-up instructions I have discussed my assessment with KITTY Wu and orders have been reviewed. Physical Exam Narrative Seen and examined manager monitoring shows sinus rhythm. Hyperkalemia resolved. General: Alert, Oriented x3, Cooperative HEENT: Atraumatic, PERRLA, EOMI, Normocephalic Oral: No Gingival or Mucosal Lesions/ Ulcerations Neck: Supple, No JVD, Negative Carotid Bruits Lungs: Air entry diminished in bilateral lung bases. No crepitation/rhonchi Cardiovascular: Regular rate, Regular Rhythm, Normal S1, Normal S2, No murmurs Abdomen: Bowel Sounds Present, Soft, Non Tender, Non-Distended : No renal angle tenderness. No suprapubic tenderness. Extremities: No edema, Capillary Refill Less than 3 Seconds Skin: No rashes, No breakdown Musculoskeletal: No Tenderness to Palpation of Joints or Extremities Neurological: Cranial nerves II-XII grossly intact, DTR 2+/4 and Symmetrical, Neuro grossly intact Psych/Mental Status: Normal Affect, Appropriate. ABG / Lab / Microbiology Data Result Diagrams: 05/08/21 04:54 05/08/21 04:54 Discharge Plan Admission Admit Date/Time: 05/07/21 19:44 Primary Reason for Your Visit: Chest pain Attending Provider: Todd Paz Primary Care Provider: Placido Bowers Instructions Patient Instructions: ED Chest Pain, Noncardiac Discharge Orders/Prescriptions Prescriptions: Continued sitagliptin 100 MG tablet 100 mg PO DAILY RF: 0 Cyclobenzaprine HCl tablet 10 mg PO DAILY PRN PRN (Reason: back pain) RF: 0 Metformin HCl ER tablet 2,000 mg PO DAILY RF: 0 Lantus Solostar U-100 Insulin 100 unit/mL (3 mL) insulin pen 14 unit SUBCUT QHS RF: 0 metoprolol succinate 50 mg tablet extended release 24 hr 50 mg PO DAILY RF: 0 lisinopril 20 mg tablet 20 mg PO DAILY RF: 0 epinephrine 0.3 mg/0.3 mL auto-injector 0.3 mg IM PRN PRN (Reason: Anaphylaxis) RF: 0 Nucynta 50 mg tablet 50 mg PO Q8H PRN PRN (Reason: Pain) RF: 0 melatonin 10 mg Capsule 40 mg PO QHS PRN PRN (Reason: Sleep) RF: 0 Referrals / Follow Up: Randy Rangel MD [STAFF PHYSICIAN] - Within 2 Weeks Placido Bowers MD [Primary Care Provider] - Within 2 Weeks Disposition Disposition (needs filled in before D/C Order can be placed): Home, Self Care Charges/Coding Visit Charges OBSV E&M: 48457 Observation care discharge
== END 2021-05-08 11:27 | disposition home or self-care (01) ==
PROVIDERS: Internal Medicine; PCP Family Medicine; Visit Provider Internal Medicine
DX: R07.89 Other chest pain (principal); I25.10 Atherosclerotic heart disease of native coronary artery without angina pectoris; R06.02 Shortness of breath; I11.9 Hypertensive heart disease without heart failure; E78.5 Hyperlipidemia, unspecified; E11.9 Type 2 diabetes mellitus without complications; I08.1 Rheumatic disorders of both mitral and tricuspid valves; R00.1 Bradycardia, unspecified; E87.5 Hyperkalemia; G89.29 Other chronic pain; K21.9 Gastro-esophageal reflux disease without esophagitis; Z79.899 Other long term (current) drug therapy; Z87.891 Personal history of nicotine dependence; Z79.4 Long term (current) use of insulin
CPT/HCPCS: 36415; 78452; 80048; 80053; 80061; 82962; 84484; 85025; 93005; 93017; 93306; 99218; A9500; Q9957; A4216; G0378; G0379; J3490